=== PATIENT | female | born 1945 | race Caucasian/White ===

== ENCOUNTER 2023-03-02 08:02 | Day surgery (SDC) | payer MEDICARE, SELFPAY ==
--- NOTE | 2023-03-02 08:16 | SUR.PREOP ---
Patient provided home covid negative results to RN.
--- NOTE | 2023-03-02 08:16 | SUR.PREOP ---
The eye drops brought by the patient (Ketorolac and Prednisolone) are examined and I have determined they are labeled by the patient's pharmacy for this patient as prescribed by the surgeon. The bottles are intact, recently obtained and appear to be correct.
[2023-03-02] MEDS: TETRACAINE 0.5% OPHTH 1 DROP EYE-RIGHT ×2 (08:29→08:35)
[2023-03-02] MEDS: KETOROLAC OPHTH 0.5% 1 DROP EYE-RIGHT ×3 (08:34→08:55)
[2023-03-02 08:46] VITALS: BP 118/76; PULSE 80; RESP 16; TEMP 36.9; O2SAT 94
[2023-03-02 08:48] VITALS: BMI 24.0
[2023-03-02] MEDS: SODIUM CHLORIDE 0.9 % (FLUSH) 10 ML SYRINGE IVF (08:48)
--- NOTE | 2023-03-02 09:26 | W.ANESCHARGE ---
Anesthesia Charges Start Date/Time Anesthesia Start Date: 03/02/23 Anesthesia Start Time: 09:34 Stop Date/Time Anesthesia Stop Date: 03/02/23 Anesthesia Stop Time: 10:18 Summary Extremes of Age - Over 70 or under 1: MDA
[2023-03-02] MEDS: TETRACAINE 0.5% OPHTH 2 DROP EYE-RIGHT (09:37)
[2023-03-02] MEDS: BALANCED SALT IRRIG SOLN 15 ML EYE-RIGHT (09:46)
--- NOTE | 2023-03-02 09:47 | P.ANES_ITS ---
Anesthesia Charges Start Date/Time Anesthesia Start Date: 03/02/23 Anesthesia Start Time: 09:34 Stop Date/Time Anesthesia Stop Date: 03/02/23 Anesthesia Stop Time: 10:18 Summary Extremes of Age - Over 70 or under 1: [employer]
[2023-03-02] MEDS: TRYPAN BLUE 0.5 ML SYRINGE EYE-RIGHT (09:50)
[2023-03-02 10:22] VITALS: BP 97/67; PULSE 73; RESP 16; TEMP 36.6; O2SAT 96
--- NOTE | 2023-03-02 11:53 | W.PM.OPTPROC ---
Procedure Note Date of procedure: 03/02/23 Will [facility] bill your pro fee for this procedure?: Yes Procedure Description: SURGEON: Elvia Maurice MD PREOPERATIVE DIAGNOSIS: Mature cataract, right eye. POSTOPERATIVE DIAGNOSIS: Mature cataract, right eye. NAME OF OPERATION: Phacoemulsification of cataract with posterior chamber intraocular lens implantation in the right eye with trypan blue. ANESTHESIA: Topical. ESTIMATED BLOOD LOSS: Less than 2 cc. COMPLICATIONS: None. PATHOLOGY SPECIMEN: None. INDICATIONS: See consult note for details. The risks, benefits and alternatives of the procedure were explained to the patient, who elected to proceed and signed informed consent to do so. PROCEDURE: The patient was brought to the pre-holding area where the right eye was identified as the operative eye. I placed my initials above this eye. The patient received eye drops consisting of 0.5% tetracaine, 1% tropicamide, 10% phenylephrine, and 0.5% ketorolac. The patient was then brought to the operating room where the left eye was again identified as the operative eye. The eye was prepped with Betadine and draped in the usual sterile ophthalmic fashion. A #15 super-sharp blade was used to create a paracentesis site. 1% non-preserved intracameral lidocaine was injected into the anterior chamber. An air bubble was injected into the anterior chamber. Trypan blue was injected posterior to the air bubble in order to stain the anterior capsule. Balanced salt solution was used to irrigate the anterior chamber. Endocoat was injected into the anterior chamber. A 2.4 mm keratome was used to create a three-plane self-sealing incision 1 mm anterior to the temporal limbus. A cystotome was used to create an anterior capsular leaflet. The Utrata forceps were used to extend this to form a continuous curvilinear capsulorrhexis. Hydrodissection was performed. The cataract was removed with phacoemulsification using the [id number] technique. The irrigation and aspiration tip was used to remove the remaining cortex. Healon was injected into the capsular bag. An BELLA ZCB00 intraocular lens of 10.5 diopters was injected into the capsular bag. The irrigation and aspiration tip was used to remove the remaining viscoelastic. Balanced salt solution on a cannula was used to hydrate the wound, and the wound was found to be watertight. The pupil was noted to be round. DISPOSITION: The patient was taken to the recovery room and discharged to home in stable condition. The patient was instructed to call me or go to the emergency department with any sudden change, including dramatic loss of vision, severe pain in the eye or eyebrow region, nausea, or vomiting. The patient will follow up in the clinic tomorrow morning.
--- NOTE | 2023-03-02 11:53 | W.PM.OPTPROC ---
Procedure Note Date of procedure: 03/02/23 Will [facility] bill your pro fee for this procedure?: Yes Procedure Description: SURGEON: Elvia Maurice MD PREOPERATIVE DIAGNOSIS: Mature cataract, right eye. POSTOPERATIVE DIAGNOSIS: Mature cataract, right eye. NAME OF OPERATION: Phacoemulsification of cataract with posterior chamber intraocular lens implantation in the right eye. ANESTHESIA: Topical. ESTIMATED BLOOD LOSS: Less than 2 cc. COMPLICATIONS: None. PATHOLOGY SPECIMEN: None. INDICATIONS: See consult note for details. The risks, benefits and alternatives of the procedure were explained to the patient, who elected to proceed and signed informed consent to do so. PROCEDURE: The patient was brought to the pre-holding area where the right eye was identified as the operative eye. I placed my initials above this eye. The patient received eye drops consisting of 0.5% tetracaine, 1% tropicamide, 10% phenylephrine, and 0.5% ketorolac. The patient was then brought to the operating room where the right eye was again identified as the operative eye. The eye was prepped with Betadine and draped in the usual sterile ophthalmic fashion. A #15 super-sharp blade was used to create a paracentesis site. 1% non-preserved intracameral lidocaine was injected into the anterior chamber. Endocoat was injected into the anterior chamber. A 2.4 mm keratome was used to create a three-plane self-sealing incision 1 mm anterior to the temporal limbus. A cystotome was used to create an anterior capsular leaflet. The Utrata forceps were used to extend this to form a continuous curvilinear capsulorrhexis. Hydrodissection was performed. The cataract was removed with phacoemulsification using the [id number] technique. The irrigation and aspiration tip was used to remove the remaining cortex. Healon was injected into the capsular bag. An BELLA ZCB00 intraocular lens of 19.0 diopters was injected into the capsular bag. The irrigation and aspiration tip was used to remove the remaining viscoelastic. Balanced salt solution on a cannula was used to hydrate the wound, and the wound was found to be watertight. The pupil was noted to be round. DISPOSITION: The patient was taken to the recovery room and discharged to home in stable condition. The patient was instructed to call me or go to the emergency department with any sudden change, including dramatic loss of vision, severe pain in the eye or eyebrow region, nausea, or vomiting. The patient will follow up in the clinic tomorrow morning.
== END 2023-03-02 10:37 | disposition home or self-care (01) ==
LOC: OR 08:06
PROVIDERS: PCP Family Medicine; Visit Provider Ophthalmology
PROC: (CPT 66984; principal; 2023-03-02 08:15)
DX: H25.89 Other age-related cataract (principal)
CPT/HCPCS: 66984; 00142; 99100; A9270; J2250; J3010; V2632

== ENCOUNTER 2023-03-16 08:07 | Day surgery (SDC) | payer MEDICARE, SELFPAY ==
[2023-03-16] MEDS: TETRACAINE 0.5% OPHTH 1 DROP EYE-LEFT ×2 (08:20→08:25)
[2023-03-16] MEDS: KETOROLAC OPHTH 0.5% 1 DROP EYE-LEFT ×3 (08:20→08:30)
[2023-03-16 08:23] VITALS: BP 131/67; PULSE 85; RESP 16; TEMP 36.3; O2SAT 95; BMI 24.0
--- NOTE | 2023-03-16 08:26 | SUR.PREOP ---
The eye drops brought by the patient (Ketorolac, Oflaxain, and Prednisolone) are examined and I have determined they are labeled by the patient's pharmacy for this patient as prescribed by the surgeon. The bottles are intact, recently obtained and appear to be correct.
[2023-03-16] MEDS: SODIUM CHLORIDE 0.9 % (FLUSH) 10 ML SYRINGE IVF (08:40)
--- NOTE | 2023-03-16 08:57 | W.ANESCHARGE ---
Anesthesia Charges Start Date/Time Anesthesia Start Date: 03/16/23 Anesthesia Start Time: 09:14 Stop Date/Time Anesthesia Stop Date: 03/16/23 Anesthesia Stop Time: 09:46 Summary Extremes of Age - Over 70 or under 1: MDA
[2023-03-16] MEDS: TETRACAINE 0.5% OPHTH 2 DROP EYE-LEFT (09:16)
[2023-03-16] MEDS: BALANCED SALT IRRIG SOLN 15 ML EYE-LEFT (09:22)
[2023-03-16 09:43] VITALS: BP 103/65; PULSE 72; RESP 16; TEMP 36.6; O2SAT 96
--- NOTE | 2023-03-16 09:46 | P.OPTPRC_ITS ---
Procedure Note Date of procedure: 03/16/23 Will [facility] bill your pro fee for this procedure?: Yes Procedure Description: SURGEON: Elvia Maurice MD PREOPERATIVE DIAGNOSIS: Nuclear sclerotic cataract, left eye. POSTOPERATIVE DIAGNOSIS: Nuclear sclerotic cataract, left eye. NAME OF OPERATION: Phacoemulsification of cataract with posterior chamber intraocular lens implantation in the left eye. ANESTHESIA: Topical. ESTIMATED BLOOD LOSS: Less than 2 cc. COMPLICATIONS: None. PATHOLOGY SPECIMEN: None. INDICATIONS: See consult note for details. The risks, benefits and alternatives of the procedure were explained to the patient, who elected to proceed and sign ed informed consent to do so. PROCEDURE: The patient was brought to the pre-holding area where the left eye was identified as the operative eye. I placed my initials above this eye. The patient received eye drops consisting of 0.5% tetracaine, 1% tropicamide, 10% phenylephrine, and 0.5% ketorolac. The patient was then brought to the operating room where the left eye was again identified as the operative eye. The eye was prepped with Betadine and draped in the usual sterile ophthalmic fashion. A #15 super-sharp blade was used to create a paracentesis site. 1% non-preserved intracameral lidocaine was injected into the anterior chamber. Endocoat was injected into the anterior chamber. A 2.4 mm keratome was used to create a three-plane self-sealing incision 1 mm anterior to the temporal limbus. A cystotome was used to create an anterior capsular leaflet. The Utrata forceps were used to extend this to form a continuous curvilinear capsulorrhexis. Hydrodissection was performed. The cataract was removed with phacoemulsification using the [id number] technique. The irrigation and aspiration tip was used to remove the remaining cortex. Healon was injected into the capsular bag. An BELLA ZCB00 intraocular lens of 11.0 diopters was injected into the capsular bag. The irrigation and aspiration tip was used to remove the remaining viscoelastic. Balanced salt solution on a cannula was used to hydrate the wound, and the wound was found to be watertight. The pupil was noted to be round. DISPOSITION: The patient was taken to the recovery room and discharged to home in stable condition. The patient was instructed to call me or go to the emergency department with any sudden change, including dramatic loss of vision, severe pain in the eye or eyebrow region, nausea, or vomiting. The patient will follow up in the clinic tomorrow morning.
--- NOTE | 2023-03-16 09:46 | W.ANESCHARGE ---
Anesthesia Charges Start Date/Time Anesthesia Start Date: 03/16/23 Anesthesia Start Time: 09:14 Stop Date/Time Anesthesia Stop Date: 03/16/23 Anesthesia Stop Time: 09:46 Summary Extremes of Age - Over 70 or under 1: [employer]ER
== END 2023-03-16 10:13 | disposition home or self-care (01) ==
PROVIDERS: PCP Family Medicine; Visit Provider Ophthalmology
PROC: (CPT 66984; principal; 2023-03-16 08:15)
DX: H25.12 Age-related nuclear cataract, left eye (principal)
CPT/HCPCS: 66984; 00142; 99100; A9270; J2250; J3010; V2632

== ENCOUNTER 2023-11-21 15:52 | Outpatient (CLI) | payer MEDICARE, SELFPAY ==
--- OUTSIDE RECORDS SUMMARY | 2023-11-25 10:33 | XMS_ITS | Clinical Summary ---
Author Name Unknown Organization [facility] Address [place], [place] [address] Care Team Providers Care Correctional Sergeant Name Role Phone Debbie Camarillo MD Primary Care Provider [phone] Allergies No known active allergies Medications Medication Sig Dispensed Refills Start Date End Date Status lisinopriL (PRINIVIL; ZESTRIL) 20 mg tabletIndications: HTN (hypertension) Take 1 Tablet (20 mg) by mouth once daily. 100 Tablet 3 06/13/20 23 023 Discontinued(*I P Discontinued) metFORMIN (GLUCOPHAGE) 850 mg tabletIndications: Prediabetes Take 1 Tablet (850 mg) by mouth two times daily with meals. 200 Tablet 3 06/13/20 23 023 Discontinued(*I P Discontinued) rosuvastatin (CRESTOR) 20 mg tabletIndications: Hyperlipidemia, unspecified hyperlipidemia type Take 1 Tablet (20 mg) by mouth at bedtime. 100 Tablet 3 06/13/20 23 023 Discontinued calcitonin salmon, 200 units per actuation, nasal (MIACALCIN, FORTICAL) 200 unit/actuation nasal sprayIndications:N ontraumatic compression fracture of T11 vertebra, initial encounter (HC),Compression fracture of L3 vertebra, initial encounter (HC) INHALE 1 SPRAY INTO AFFECTED NOSTRIL(S) ONCE DAILY. ALTERNATING NOSTRILS DAILY. 11.1 mL 3 10/17/20 23 024 Discontinued(Ph armacist change per medication history (E-cancel not sent)) oxyCODONE (ROXICODONE) 5 mg immediate release tabletIndications: Nontraumatic compression fracture of T11 vertebra, initial encounter (HC),Compression fracture of L3 vertebra, initial encounter (HC) Take 1 Tablet (5 mg) by mouth every 6 hours if needed for Pain. 30 Tablet 0 10/20/20 23 023 Discontinued acetaminophen (TYLENOL EXTRA STRGTH) 500 mg tablet Take 1,000 mg by mouth three times daily. Max acetaminophen dose: 4000mg in 24 hrs. 0 Suspended aspirin (ECOTRIN) 81 mg enteric coated tablet Take 81 mg by mouth once daily with evening meal. 0 Suspended guar gum (CHEWABLE FIBER ORAL) Take 1 Tablet by mouth once daily. 0 Suspended oxyCODONE (ROXICODONE) 5 mg immediate release tabletIndications: Nontraumatic compression fracture of T11 vertebra, initial encounter (HC),Compression fracture of L3 vertebra, initial encounter (HC) Take 1 Tablet (5 mg) by mouth every 6 hours if needed (severe pain). 10 Tablet 0 10/28/20 23 Suspended Additional Information acetylcysteine (MUCOMYST) 10 % (100 mg/ml) neb solutionIndication s:Abscess of left lung with pneumonia, unspecified part of lung (HC) Inhale 2 mL by mouth 4 times daily. 0 10/28/20 23 Suspended Additional Information albuterol (PROVENTIL) 0.083 % neb solutionIndication s:Abscess of left lung with pneumonia, unspecified part of lung (HC) Inhale 3 mL (2.5 mg) via a nebulizer 4 times daily. 0 10/28/20 23 Suspended Additional Information amoxicillin-clavul anate 875-125 mg tablet (AUGMENTIN)Indicat ions:Abscess of left lung with pneumonia, unspecified part of lung (HC) Take 1 Tablet by mouth two times daily with meals. 0 10/28/20 23 024 Suspended Additional Information doxycycline (VIBRAMYCIN) 100 mg capsuleIndications :Community acquired pneumonia, unspecified laterality,Abscess of left lung with pneumonia, unspecified part of lung (HC) Take 1 Capsule (100 mg) by mouth two times daily. 0 10/28/20 23 024 Discontinued(Ph armacist change per medication history (E-cancel not sent)) rosuvastatin (CRESTOR) 20 mg tabletIndications: Hyperlipidemia, unspecified hyperlipidemia type Take 0.5 Tablets (10 mg) by mouth at bedtime. 0 10/28/20 23 Suspended Additional Information lactobacillus rhamnosus, GG, (Culturelle) 10 billion cell capsule Take 1 Capsule by mouth once daily. 0 Suspended calcium polycarbophiL (Fiber) 625 mg tablet Take 625 mg by mouth once daily. 0 024 Discontinued(*P atient states no longer taking) furosemide (Lasix) 40 mg tablet Take 40 mg by mouth every morning. 0 Suspended melatonin 3 mg tablet Take 1 mg by mouth at bedtime. 0 Suspended mirtazapine (REMERON) 7.5 mg as half tablet Take 7.5 mg by mouth at bedtime. 0 Suspended LORazepam (ATIVAN) 0.5 mg tab Take 0.5 mg by mouth every 4 hours if needed for Anxiety. 0 Suspended Active Problems Problem Noted Date Diagnosed Date Adenocarcinoma of left lung 11/25/2023 Spinal cord lesion 11/22/2023 Acute hypoxic respiratory failure 11/22/2023 Hypokalemia 11/22/2023 Leukocytosis 11/22/2023 Thrombocytosis 11/22/2023 Mass of left lung 11/22/2023 Abscess of left lung with pneumonia 10/24/2023 Pre-diabetes 10/24/2023 Non-traumatic compression fr acture of T11 thoracic vertebra, with routine healing, subsequent encounter 10/24/2023 Compression fracture of L3 l umbar vertebra, with routine healing, subsequent encounter 10/24/2023 Sepsis 10/24/2023 Hypertension, essential 06/10/2022 Increased glucose level 06/10/2022 Mixed hyperlipidemia 03/16/1999 Resolved Problems Problem Noted Date Diagnosed Date Resolved Date Recurrent major depressive d isorder, in partial remission 04/14/1998 06/10/2022 Encounters Date Type Department Care Team Description 11/21/2023 4:58 PM UNDERGRADUATE ADVISOR - Present Hospital Encounter [facility] [address] [place] [address] Leticia Rhodes PA Dodd, Kendra Danielle, MD [facility], MD Ramón Martinez, MD Caitlyn Hinojosa, Arun Patel MD Hypoxemia (Primary Dx); Hypokalemia; Shortness of breath; Pneumonia of left lung due to infectious organism, unspecified part of lung; Pleural effusion 11/21/2023 Travel 11/21/2023 Lab Requisition [facility] [phone] Lisa Kilgore NP 11/17/2023 Orders Only [facility] Scanner 1 scan: (1-Ord) ABNER, MULTIPLE TEST RESULTS, 11/17/2023 2023 Refill [facility] [address] [place] [address] Debbie Camarillo MD Refill Request (Metformin) 10/31/2023 Lab Requisition [facility] [phone] Isaac Cook MD 10/24/2023 11:30 AM UNDERGRADUATE ADVISOR - 10/28/2023 10:30 AM UNDERGRADUATE ADVISOR Hospital Encounter [facility] [address] [place] [address] Elvia Finley, PRECISION OPT[employer] TECHNICIAN Avni, Paco Moran, Tess Waldron MD Nguyen, Catrachita Angel, ERICA Razo, Carlito Adams, ERICA Community acquired pneumonia, unspecified laterality (Primary Dx); Sepsis with acute organ dysfunction without septic shock, due to unspecified organism, unspecified organ dysfunction type (HC); Skin candidiasis; Pressure injury, stage 2, unspecified location (HC); Hallucinations; Compression fracture of body of thoracic vertebra (HC); Compression fracture of L2 lumbar vertebra, sequela; Nontraumatic compression fracture of T11 vertebra, initial encounter (HC); Compression fracture of L3 vertebra, initial encounter (HC); Abscess of left lung with pneumonia, unspecified part of lung (HC); Prediabetes; Hyperlipidemia, unspecified hyperlipidemia type Discharge Disposition: [facility] Facility 10/24/2023 Travel 10/24/2023 Nurse Triage [facility] [address] [place] [address] Debbie Camarillo MD Back Pain; Hallucinations 10/16/2023 Refill [facility] [address] [place] [address] Danica Palomo PA Refill Request (Calcitonin [place] (200 Units Per Actuation) Nasal) 09/23/2023 2:25 PM UNDERGRADUATE ADVISOR Office Visit [facility] [address] [place] [address] Rowan Wilson PA Back Pain (follow up, no change in symptoms) 09/23/2023 Travel 09/16/2023 3:00 PM CDT Ancillary Procedure [facility] [address] [place] [address] 09/16/2023 2:30 PM CDT Office Visit [facility] [address] [facility] [place] [address] Danica Palomo PA Back Pain (lower back- sharp stabbing pain there all the time, about a month, takes the breath away/No injury or falls) 09/16/2023 Travel from Last 3 Months Immunizations Name Administration Dates Next Due COVID-19 vaccine ([employer] NTech 30mcg/0.3mL) 12YO+ BIVALENT PF, MDV 02/23/2023 Hepatitis B (Adult) 03/29/2000,03/27/1999 Influenza, High-dose Inactivated 019,08/14/2018,08/03/2017,2015 Influenza, High-dose Quadriv alent Inactivated 08/25/2022,08/18/2021,08/04/2020 Influenza, IIV3 (Age 6-35 mos) 08/11/2015,2009,07/28/2009 Influenza, IIV3 (Age >=3 years) 06/20/20 14,07/21/2012,07/22/2011,2007,10/11/2007,10/04/2005 Influenza, IIV4 (Age 6-35 Mos) 07/26/2013 Pneumococcal Poly,23-Valent (Pneumovax) 08/11/2016,10/04/2005 Pneumococcal conj 13-Valent (Prevnar 13) 08/11/2015 Tdap 03/14/2018,07/08/2008 Social History Tobacco Use Types Packs/Day Years Used Date Smoking Tobacco: Never Smokeless Tobacco: Never Tobacco Cessation:Counseling Given: Yes Alcohol Use Standard Drinks/Week Comments Yes 0 (1 standard drink = 0.6 oz pur e alcohol) oce a month PHQ-2 Answer Date Recorded PHQ-2 TOTAL SCORE 0 06/13/2023 Social Connections Answer Date Recorded Frequency of Communication with Friends and Fami ly 0 10/24/2023 Financial Resource Strain Answer Date R ecorded Difficulty of Paying Living Expenses 3 10/24/2023 Difficulty of Paying Living Expenses Not on file 10/24/2023 Food Insecurity Answer Date Recorded Worried About Running Out of Food in the Last Ye ar 1 10/24/2023 Transportation Needs Answer Date Record ed Lack of Transportation (Medical) 1 10/24/2023 Housing Stability Answer Date Recorded Unable to Pay for Housing in the Last Year 1 10/24/2023 Sex and Gender Information Value Date Recorded Sex Assigned at Not on file Gender Identity Not on file Sexual Orientation Not on file Obstetrics History Last Filed Vital Signs Vital Sign Reading Time Taken Comments Blood Pressure 110/62 11/25/2023 8:00 AM UNDERGRADUATE ADVISOR Pulse 92 11/25/2023 8:00 AM UNDERGRADUATE ADVISOR Temperature 36.5 ??C (97.7 ??F) 11/25/2023 8:00 AM CS T Respiratory Rate 16 11/25/2023 8:00 AM UNDERGRADUATE ADVISOR Oxygen Saturation 96% 11/25/2023 8:37 AM UNDERGRADUATE ADVISOR Inhaled Oxygen Concentration - - Weight 49.9 kg (109 lb 14.4 oz) 11/22/2023 6:00 AM UNDERGRADUATE ADVISOR Height 152.4 cm (5') 11/21/2023 5:13 PM UNDERGRADUATE ADVISOR Body Mass Index 21.46 11/21/2023 5:13 PM UNDERGRADUATE ADVISOR Plan of Treatment Upcoming Encounters Date Type Department Care Team (Late st Contact Info) Description 12/19/2023 10:45 AM UNDERGRADUATE ADVISOR Office Visit [facility] [address] [facility] [address] [place] [address] Robson Moreno MD [address] [facility] [address] [place], [place] [id number] Health Maintenance Due Date Last Done Comments Zoster (shingles) series for age 50+ (1 of 2) 1966 COVID-19 vaccine series (2022-24 season) 2023 02/23/2023, 03/17/2022, 07/30/2021, Additional history exists Influenza for age 65+ 07/15/2023 08/25/2022 , 08/18/2021, 08/04/2020, Additional history exists Medicare Wellness for age 65+ 06/12/2024 06/13/2023, 06/10/2022 BMI (ht and wt on same day) for age 18+ 06/13/2024 06/13/2023, 02/23/2023, 06/10/2022 Depression screening for age 12+ 06/13/2024 06/13/2023, 06/11/2022, 06/10/2022 Tetanus booster 03/14/2028 03/14/2018, 07/08/2008 Pneumococcal series for age 65+ Completed 08/11/2016, 08/11/2015, 10/04/2005 Tdap Completed 03/14/2018, 07/08/2008 Hepatitis C screening for ag e 18-79 Completed 06/10/2022 DEXA/DXA scan for age 65+ Completed 06/14/2022 Procedures The patient is currently admitted. The information in this section might not be complete until the patient is discharged. Procedure Name Priority Date/Time Associated Diagnosis Comments MAGNESIUM Early AM 11/25/2023 6:15 AM UNDERGRADUATE ADVISOR POTASSIUM Early AM 11/25/2023 6:15 AM UNDERGRADUATE ADVISOR POTASSIUM Early AM 11/24/2023 7:45 AM UNDERGRADUATE ADVISOR MAGNESIUM Timed 11/24/2023 7:45 AM UNDERGRADUATE ADVISOR CBC W PLT NO DIFF Early AM 11/24/2023 7:4 5 AM UNDERGRADUATE ADVISOR XR CHEST 1 VIEW PORTABLE Routine 11/23/2023 4:36 PM UNDERGRADUATE ADVISOR PATH FNA CYTOLOGY ASP CYTOLOGY Today 11/23/2023 2:[address] BIOPSY LUNG LEFT Routine 11/23/2023 2 :36 PM UNDERGRADUATE ADVISOR COMPLETE PULMONARY FUNCTION TEST WITH BRONCHODILATOR Routine 11/23/2023 2:12 PM UNDERGRADUATE ADVISOR MAGNESIUM JOSHUA 11/23/2023 5:53 AM UNDERGRADUATE ADVISOR PROTIME-INR Timed 11/23/2023 5:53 AM UNDERGRADUATE ADVISOR POTASSIUM Timed 11/23/2023 5:53 AM UNDERGRADUATE ADVISOR MICHAEL PREP, OTHER SOURCE Add On 6:09 PM UNDERGRADUATE ADVISOR XR CHEST 1 VIEW PA OR AP Routine 11/22/2023 2:41 PM UNDERGRADUATE ADVISOR US THORACENTESIS LEFT Routine 11/22/2023 2:33 PM UNDERGRADUATE ADVISOR PATH NON LIFE CLAIMS EXAMINER CYTOLOGY Today 11/22/2023 2:29 PM UNDERGRADUATE ADVISOR CWS PATH REVIEW BODY FLUID Timed 11/22/2023 2:29 PM UNDERGRADUATE ADVISOR ANAEROBIC CULTURE Today 11/22/2023 2:2 9 PM UNDERGRADUATE ADVISOR AFB CULTURE, STAIN Today 11/22/2023 2: 29 PM UNDERGRADUATE ADVISOR LD,BODY FLUID Today 11/22/2023 2:29 PM UNDERGRADUATE ADVISOR PH,BODY FLUID Today 11/22/2023 2:29 PM UNDERGRADUATE ADVISOR PROTEIN,BODY FLUID Today 11/22/2023 2: 29 PM UNDERGRADUATE ADVISOR BODY FLUID CELL COUNT/DIF Routine 11/22/2023 2:29 PM UNDERGRADUATE ADVISOR BODY FLUID CULTURE,STAIN (AEROBIC) Today 11/22/2023 2:29 PM UNDERGRADUATE ADVISOR SCAN CORRESP-LABORATORY RESULTS 11/22/2023 9:46 AM UNDERGRADUATE ADVISOR PHOSPHORUS JOSHUA 11/22/2023 4:50 AM UNDERGRADUATE ADVISOR MAGNESIUM JOSHUA 11/22/2023 4:50 AM UNDERGRADUATE ADVISOR BASIC METABOLIC PANEL Early AM 11/22/2023 4:50 AM UNDERGRADUATE ADVISOR CBC W PLT NO DIFF Early AM 11/22/2023 4:5 0 AM UNDERGRADUATE ADVISOR LACTATE SCREEN VENOUS ISTAT W MOSER STAT 11/21/2023 9:39 PM UNDERGRADUATE ADVISOR EXTRA TUBE MOSER ON ICE STAT 9:25 PM UNDERGRADUATE ADVISOR PROCALCITONIN JOSHUA 11/21/2023 9:25 PM UNDERGRADUATE ADVISOR BLOOD CULTURE STAT 11/21/2023 9:25 PM UNDERGRADUATE ADVISOR ISTAT LACTATE SCREEN VENOUS STAT 11/21/2023 9:25 PM UNDERGRADUATE ADVISOR BLOOD CULTURE STAT 11/21/2023 9:[address] CHEST PE STUDY STAT 11/21/2023 8:3 7 PM UNDERGRADUATE ADVISOR TROPONIN T (HS) ONE TIME Timed 11/21/2023 8:08 PM UNDERGRADUATE ADVISOR EKG 12 LEAD STAT 11/21/2023 6:14 PM UNDERGRADUATE ADVISOR CWS PATH REVIEW HEMATOLOGY STAT 11/21/2023 6:08 PM UNDERGRADUATE ADVISOR RED CELL MORPHOLOGY STAT 11/21/2023 6 :08 PM UNDERGRADUATE ADVISOR PLATELET ESTIMATE STAT 11/21/2023 6:0 8 PM UNDERGRADUATE ADVISOR MANUAL DIFFERENTIAL STAT 11/21/2023 6 :08 PM UNDERGRADUATE ADVISOR PRO-BNP JOSHUA 11/21/2023 6:08 PM UNDERGRADUATE ADVISOR TROPONIN T (HS) ACUTE W/2HR REFLEX JOSHUA 11/21/2023 6:08 PM UNDERGRADUATE ADVISOR CBC WITH AUTO DIFFERENTIAL STAT 11/21/2023 6:08 PM UNDERGRADUATE ADVISOR BASIC METABOLIC PANEL STAT 11/21/2023 6:08 PM UNDERGRADUATE ADVISOR CBC WITH AUTO DIFFERENTIAL STAT 11/21/2023 6:08 PM UNDERGRADUATE ADVISOR SCAN-LABORATORY REPORT 4 12:00 AM UNDERGRADUATE ADVISOR CWS PATH REVIEW HEMATOLOGY Routine 2023 7:05 AM UNDERGRADUATE ADVISOR Pneumonia, unspecified organism RED CELL MORPHOLOGY Routine 2023 7 :05 AM UNDERGRADUATE ADVISOR Pneumonia, unspecified organism PLATELET ESTIMATE Routine 2023 7:0 5 AM UNDERGRADUATE ADVISOR Pneumonia, unspecified organism MANUAL DIFFERENTIAL Routine 2023 7 :05 AM UNDERGRADUATE ADVISOR Pneumonia, unspecified organism CBC WITH AUTO DIFFERENTIAL Routine 2023 7:05 AM UNDERGRADUATE ADVISOR Pneumonia, unspecified organism BASIC METABOLIC PANEL Routine 2023 7:05 AM UNDERGRADUATE ADVISOR Pneumonia, unspecified organism C-REACTIVE PROTEIN Routine 2023 7: 05 AM UNDERGRADUATE ADVISOR Pneumonia, unspecified organism CBC WITH AUTO DIFFERENTIAL Routine 2023 7:05 AM UNDERGRADUATE ADVISOR Pneumonia, unspecified organism MRSA/SA PCR Today 10/27/2023 3:27 PM UNDERGRADUATE ADVISOR COCCIDIOIDES ANTIBODY IGG & IGM Today 10/27/2023 1:23 PM UNDERGRADUATE ADVISOR BLASTOMYCES ABS QN DID Today 1:23 PM UNDERGRADUATE ADVISOR C-REACTIVE PROTEIN JOSHUA 10/27/2023 6: 06 AM UNDERGRADUATE ADVISOR MAGNESIUM Early AM 10/27/2023 6:06 AM UNDERGRADUATE ADVISOR POTASSIUM Early AM 10/27/2023 6:06 AM UNDERGRADUATE ADVISOR CREATININE Early AM 10/27/2023 6:06 AM UNDERGRADUATE ADVISOR PROCALCITONIN Early AM 10/27/2023 6:06 AM UNDERGRADUATE ADVISOR WHITE BLOOD COUNT Early AM 10/27/2023 6:0 6 AM UNDERGRADUATE ADVISOR MAGNESIUM Timed 10/27/2023 12:35 AM UNDERGRADUATE ADVISOR POTASSIUM Timed 10/26/2023 7:03 PM UNDERGRADUATE ADVISOR C-REACTIVE PROTEIN Early AM 10/26/2023 5: 48 AM UNDERGRADUATE ADVISOR WHITE BLOOD COUNT Early AM 10/26/2023 5:4 8 AM UNDERGRADUATE ADVISOR CREATININE Early AM 10/26/2023 5:48 AM UNDERGRADUATE ADVISOR CHLORIDE Early AM 10/26/2023 5:48 AM UNDERGRADUATE ADVISOR SODIUM Early AM 10/26/2023 5:48 AM UNDERGRADUATE ADVISOR BUN Early AM 10/26/2023 5:48 AM UNDERGRADUATE ADVISOR CO2,TOTAL Early AM 10/26/2023 5:48 AM UNDERGRADUATE ADVISOR MAGNESIUM Early AM 10/26/2023 5:48 AM UNDERGRADUATE ADVISOR POTASSIUM Early AM 10/26/2023 5:48 AM UNDERGRADUATE ADVISOR GLUCOSE METER Routine 10/25/2023 11:46 AM UNDERGRADUATE ADVISOR GLUCOSE METER Routine 10/25/2023 7:51 AM UNDERGRADUATE ADVISOR C-REACTIVE PROTEIN Early AM 10/25/2023 5: 53 AM UNDERGRADUATE ADVISOR CALCIUM Early AM 10/25/2023 5:53 AM UNDERGRADUATE ADVISOR CO2,TOTAL Early AM 10/25/2023 5:53 AM UNDERGRADUATE ADVISOR BUN Early AM 10/25/2023 5:53 AM UNDERGRADUATE ADVISOR HEMOGLOBIN Early AM 10/25/2023 5:53 AM UNDERGRADUATE ADVISOR WHITE BLOOD COUNT Early AM 10/25/2023 5:5 3 AM UNDERGRADUATE ADVISOR MAGNESIUM Early AM 10/25/2023 5:53 AM UNDERGRADUATE ADVISOR CREATININE Early AM 10/25/2023 5:53 AM UNDERGRADUATE ADVISOR POTASSIUM Early AM 10/25/2023 5:53 AM UNDERGRADUATE ADVISOR SODIUM Early AM 10/25/2023 5:53 AM UNDERGRADUATE ADVISOR GLUCOSE METER Routine 10/24/2023 9:14 PM UNDERGRADUATE ADVISOR GLUCOSE METER Routine 10/24/2023 5:04 PM UNDERGRADUATE ADVISOR URINALYSIS MICROSCOPIC STAT 3:47 PM UNDERGRADUATE ADVISOR LEGIONELLA AND PNEUMOCOCCAL URINE ANTIGEN STAT 10/24/2023 3:47 PM UNDERGRADUATE ADVISOR UA W/ SEDIMENT EXAM REFLEXED PER CRITERIA STAT 10/24/2023 3:47 PM UNDERGRADUATE ADVISOR PROCALCITONIN STAT 10/24/2023 1:[address] CHEST W STAT 10/24/2023 1:09 PM UNDERGRADUATE ADVISOR XR CHEST 1 VIEW PORTABLE STAT 10/24/2023 12:17 PM UNDERGRADUATE ADVISOR RED CELL MORPHOLOGY STAT 10/24/2023 1 1:57 AM UNDERGRADUATE ADVISOR PLATELET ESTIMATE STAT 10/24/2023 11: 57 AM UNDERGRADUATE ADVISOR MANUAL DIFFERENTIAL STAT 10/24/2023 1 1:57 AM UNDERGRADUATE ADVISOR CBC WITH AUTO DIFFERENTIAL STAT 10/24/2023 11:57 AM UNDERGRADUATE ADVISOR PRO-BNP STAT 10/24/2023 11:57 AM UNDERGRADUATE ADVISOR LACTATE VENOUS Today 10/24/2023 11:57 AM UNDERGRADUATE ADVISOR BLOOD CULTURE STAT 10/24/2023 11:57 AM UNDERGRADUATE ADVISOR BLOOD CULTURE STAT 10/24/2023 11:57 AM UNDERGRADUATE ADVISOR C-REACTIVE PROTEIN STAT 10/24/2023 11 :57 AM UNDERGRADUATE ADVISOR COMP METABOLIC PANEL STAT 10/24/2023 11:57 AM UNDERGRADUATE ADVISOR CBC WITH AUTO DIFFERENTIAL STAT 10/24/2023 11:57 AM UNDERGRADUATE ADVISOR XR SPINE THORACOLUMBAR JUNCTION MINIMUM OF 2 VIEWS Routine 09/16/2023 3:10 PM CDT Severe back pain from Last 3 Months Results * POTASSIUM (11/25/2023 6:15 AM UNDERGRADUATE ADVISOR) Only the most recent of7 resultswithin the time period is included. POTASSIUM 4.7 3.5 - 5.1 mmol/L 11/25/2023 7:43 AM UNDERGRADUATE ADVISOR [facility] Blood BLOOD SPECIMEN / Unknown Venipuncture / Unknown 11/25/2023 6:15 AM UNDERGRADUATE ADVISOR 11/25/2023 6:26 AM UNDERGRADUATE ADVISOR Arun Jorge Brady MD [facility] [address] [place] [address], * MAGNESIUM (11/25/2023 6:15 AM UNDERGRADUATE ADVISOR) Only the most recent of8 resultswithin the time period is included. MAGNESIUM 2.1 1.6 - 2.4 mg/dL 11/25/2023 7:43 AM UNDERGRADUATE ADVISOR [facility] Blood BLOOD SPECIMEN / Unknown Venipuncture / Unknown 11/25/2023 6:15 AM UNDERGRADUATE ADVISOR 11/25/2023 6:26 AM UNDERGRADUATE ADVISOR Arun Brady MD CHEMISTRY [facility] [address] [place] [address], * (ABNORMAL) CBC no diff AM (11/24/2023 7:45 AM UNDERGRADUATE ADVISOR) Only the most recent of2 resultswithin the time period is included. WHITE BLOOD COUNT 21.2(H) 4.5 - 11.0 thou/cu mm 11/24/2023 8:05 AM [facility] RED BLOOD COUNT 3.16(L) 4.00 - 5.20 mil/cu mm 11/24/2023 8:05 AM [facility] HEMOGLOBIN 9.4(L) 12.0 - 16.0 g/dL 11/24/2023 8:05 AM [facility] HEMATOCRIT 29.3(L) 33.0 - 51.0 % 11/24/2023 8:05 AM [facility] MCV 93 80 - 100 fL 11/24/2023 8:05 AM [facility] MCH 29.7 26.0 - 34.0 pg 11/24/2023 8:05 AM [facility] MCHC 32.1 32.0 - 36.0 g/dL 11/24/2023 8:05 AM [facility] RDW 21.3(H) 11.5 - 15.5 % 11/24/2023 8:05 AM [facility] PLATELET COUNT 560(H) 140 - 440 thou/cu mm 11/24/2023 8:05 AM [facility] MPV 9.5 6.5 - 11.0 fL 11/24/2023 8:05 AM [facility] NRBC 0.0 % 11/24/2023 8:05 AM [facility] ABS NRBC 0.0 thou /cu mm 11/24/2023 8:05 AM UNDERGRADUATE ADVISOR [facility] Blood BLOOD SPECIMEN / Unknown Venipuncture / Unknown 11/24/2023 7:45 AM UNDERGRADUATE ADVISOR 11/24/2023 7:58 AM UNDERGRADUATE ADVISOR Arun Jorge Brady MD HEMATOLOGY [facility] [address] [place] [address], [place] * XR CHEST 1 VIEW PORTABLE (11/23/2023 4:36 PM UNDERGRADUATE ADVISOR) Only the most recent of2 resultswithin the time period is included. Anatomical Region Laterality Modality HEART, THORAX, CHEST Digital Rad iography 11/23/2023 5:51 PM UNDERGRADUATE ADVISOR Impressions 11/23/2023 5:51 PM UNDERGRADUATE ADVISOR Trace left apical pneumothorax is unchanged from the biopsy. Dictated by Tripp Barnhart MD @ Nov 23 2023 ??5:51PM (Electronically Signed) ?? Narrative 11/23/2023 5:51 PM UNDERGRADUATE ADVISOR For Patients: ??As a result of the Cures Act, medical imaging exams and procedure reports are released immediately into your electronic medical record. ??You may view this report before your referring provider. ??If you have questions, please contact your health care provider. INDICATION: 2 hour post left lung biopsy. COMPARISON: Chest x-ray dated [address]-guided left lung biopsy dated 23 November 2023 at 1403 hours. FINDINGS: A single portable chest x-ray shows a normal cardiac silhouette. Atherosclerotic aorta. The lungs show airspace opacities in the mid and lower lungs. Trace left apical pneumothorax is and unchanged from the biopsy. Procedure Note Tripp Barnhart MD - 11/23/2023 For Patients: As a result of the Cures Act, medical imagingexams and procedure reports are released immediately into your electronicmedical record. You may view this report before your referring provider.If you have questions, please contact your health care provider. INDICATION: 2 hour post left lung biopsy. COMPARISON: Chest x-ray dated [address]-guided left lung biopsy dated 2023 at 1403 hours. FINDINGS: A single portable chest x-ray shows a normal cardiac silhouette.Atherosclerotic aorta. The lungs show airspace opacities in the mid and lower lungs. Trace leftapical pneumothorax is and unchanged from the biopsy. IMPRESSION: Trace left apical pneumothorax is unchanged from the biopsy. Dictated by Tripp Barnhart MD @ Nov 23 2023 5:51PM (Electronically Signed) Tripp Barnhart MD GENERAL IMAGING * PATH FNA CYTOLOGY ASP CYTOLOGY (11/23/2023 2:37 PM UNDERGRADUATE ADVISOR) Case Report Medical Cytology Report ? Case: [id number] ? Authorizing Provider: ??Tripp Barnhart MD ? Collected: ? 11/23/2023 1437 ? Ordering Location: ? [facility] ?Received: ?11/23/2023 1437 ? Hospital ? Pathologist: ? Perico Yu MD ? Specimen: ?Aspirate ? 4 4:53 PM [facility] Amendment 11/24/2023 - Amendmen t issued to report PD-L1 results. See final diagnosis section. 4 4:53 PM [facility] Final Diagnosis A) LUNG, LEFT LOWER LOBE, IMAGE GUIDED NEEDLE CORE BIOPSY WITH CYTOLOGIC TOUCH IMPRINTS: 1. Positive for adenocarcinoma with mucinous features 2. Ancillary testing: ?? a. PD-L1: ?- Tumor Proportion Score (TPS): 0% (No PD-L1 expression, TPS less than 1%) ?- Tumor Cell (TC): 0% (Negative, TC less than 1%) ?? b. NGS: Pending, ordered 11/24/2023 ?? 3. See comment 4 4:53 PM [facility] Amendment electronically signed by Beata Fernandez DO on 11/24/2023 at 4:53 PM Comment This TTF-1 positive, napsin-positive adenocarcinoma is consistent with a pulmonary primary. Note that the patient's pleural fluid specimen ([id number]) is also positive for adenocarcinoma. Case seen in consultation with Dr. Fernandez. LUNG ANCILLARY TESTING PROTOCOL Slides available for [facility] NGS testing: A1-1, A1-4 together (utilized for testing 11/24/2023); alternate slides are [id number] A1-2, N24-153 A1-1. Blocks available for [facility] NGS testing: A2; alternate block [id number] A2 Blocks available for tests using immunostains and/or FISH (requiring 100 cells): A2; alternate block N24-153 A2 Blocks available for send out (outside vendor) testing requiring 5 x 5 mm of tumor: N24-153 A2 This patient's sample meets [facility] Thoracic Oncology Program Committee criteria* for reflex testing or such testing has been requested by the ordering physician. Testing will be performed, and the results will be communicated in an amendment to this report. There is no need to call to order the above tests. If there is a need for ancillary tests other than these, please contact the [facility] ([phone]). *[facility] Program Committee reflex testing criteria: Stage IV pulmonary non-small cell carcinoma OR Tumor size >= 4 cm, or lymph node involvement, pulmonary non-small cell carcinoma, neoadjuvant setting OR Resected stage IB - IIIB pulmonary non-small cell carcinoma, adjuvant setting (if not previously performed) - [facility] Lung NGS panel (EGFR, ALK, ROS1, RET, MET, KRAS, BRAF, HRAS, NRAS, ERBB2, NTRK1/2/3) - [facility] SP263 - If RNA NGS fusion analysis fails, FISH for ALK and ROS1 fusion will be attempted 4 4:53 PM [facility] Clinical Information Ms. Mcneil is a 78 y.o. with abnormal chest imaging. A CT scan dated 11/21/2023 reports the following: IMPRESSION: 1. Persistent masslike infiltrate in the lower left lung. This could represent a neoplasm and/or pneumonia. 2. New bilateral pleural effusions with adjacent passive atelectasis in the lower lobes. 3. Lytic lesion in the T7 vertebral body highly suspicious for a metastatic lesion There is also a concurrent pleural fluid pathology case ([id number]). 4 4:53 PM [facility] Gross Description A) Received identified as Left lower lobe lung is a radiologic guided biopsy specimen. The core biopsy sampling measures 0.4 cm x 0.3 cm in aggregate. The specimen consists of: ? -4 Air dried slides ? -1 Formalin vial ? -0 RPMI vials The following were prepared from the specimen submitted: ? -4 Diff-Quik stained slides ? -1 H&E stained cell block slide The biopsy material is entirely submitted in 1 cassette. A2 Cell block material was removed from the patient and placed directly in formalin at 1425 on 11/23/23 and fixed in formalin at least 6 hours and no more than 72 hours. 4 4:53 PM [facility] Adequacy Assessment A) Loulou assessed adequacy from the air-dried smears at the time of the procedure with an impression of Adequate. 4 4:53 PM [facility] Microscopic Description Specimen adequacy: Adequate for interpretation. All slides were reviewed. The microscopic appearance substantiates the diagnosis. 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 Immunohistochemical stains are necessary and indicated to assess for possible primary sites. The following staining pattern is seen: TTF-1: Positive in the majority of neoplastic cells Napsin A: Positive in the majority of neoplastic cells This pattern supports this being a lung primary. 4 4:53 PM [facility] Additional Information Cytology is screened at [facility] - [address], [place] [address] and [facility] - [address], [place] [address] and [facility] - [address] [place] [address] Interpreted at [facility] - [address], [place] [address] TEST PERFORMED: PD-L1 (SP263) ANALYSIS BY IMMUNOHISTOCHEMISTRY (block A2) MATERIALS AND METHODS: ??- Adequate number of tumor cells are present on the re-cut H&E stain section. Minimum number of tumor cells required is 100 viable tumor cells ??- The positive and negative control tissue demonstrate appropriate staining TESTING INFORMATION FOR PD-L1 ANALYSIS: PD-L1 assayed by immunohistochemistry with microscopy, following tissue fixation in 10% neutral buffered formalin. Tissue sections are incubated with a PD-L1 rabbit monoclonal antibody (Macdoel PD-L1 SP263 assay), performed on the Macdoel BenchMark ULTRA instrument and visualized with OptiView DAB IHC Detection kit and OptiView Amplification Kit. PD-L1 22C3 Tumor Proportion Score (TPS) Interpretation Guidelines for non-small cell lung carcinoma: Tumor Proportion Score is determined by manual morphometry evaluating the number of tumor cells with partial or complete membranous staining (1+ intensity or more) divided by the total number of viable tumor cells. TPS scoring cut-offs: TPS less than 1% (No PD-L1 expression) TPS greater than or equal to 1% and less than 50% (PD-L1 Expression) TPS greater than or equal to 50% (High PD-L1 expression) Tumor Cell (TC) Interpretation Guidelines for non-small cell lung carcinoma: PD-L1 SP263 Tumor cell Score (TC) is determined by manual morphometry, evaluating the percentage of tumor cells (%TC) with any membrane staining above the background. TC scoring cut-offs: TC less than 1% (Negative) TC greater than or equal to 1% (Expression) This Macdoel SP263 immunohistochemical antibody assay is considered a laboratory developed test for patients with??non-small cell lung cancer who are being considered for treatment with atezolizumab. This Macdoel SP263 immunohistochemical antibody assay is considered a laboratory developed test for patients with non-small cell lung carcinoma who are being considered for treatment with pembrolizumab. This SP263 assay has been validated against the FDA approved PharmDX 22C3 assay. ?? The performance of this assay has not been validated on decalcified specimens. Results on decalcified specimens should be interpreted with caution, given the likelihood of a false negative result on decalcified specimens. References N Engl J Med 2020; 383:0013-7230 ?? 10.1056/CNVLag0225546 J Thorac Oncol 2018;13(3):367-76 https://doi.org/10.101 6/j.jtho.2017.11.112 J Thorac Oncol 2018;13(9):1302-11 ??https://doi.org/10.1 016/j.jtho.2018.05.013 J Thorac Oncol 2017;12(11):1654-63 ??https://doi.org /10.1016/j.jtho.2017.0 7.031 Am J Clin Oncol 2021;39(15)suppl:8500 ?? 10.1200/JCO.2021.39.15 _suppl.8500 Disclaimer Support for the interpretation of this case may have included the use of immunohistochemistry and/or in situ hybridization tests that were performed by [employer] and whose performance characteristics were evaluated by pathologists from [facility]. These tests have not been cleared or approved by the U.S. Food and Drug Administration. These tests are used for clinical purposes and should not be regarded as investigational or for research. This laboratory is certified under the Clinical Laboratory Improvement Amendments of 1988 (CLIA) as qualified to perform high complexity clinical laboratory testing. 4 4:53 PM UNDERGRADUATE ADVISOR [facility] Aspirate SPECIMEN OBTAINED BY ASPIRATION / Unknown 11/23/2023 2:37 PM UNDERGRADUATE ADVISOR 11/23/2023 2:37 PM UNDERGRADUATE ADVISOR Tripp Barnhart MD PATHOLOGY/CYTOLOGY [facility] [address] [place] [address], * CT BIOPSY LUNG LEFT (11/23/2023 2:36 PM UNDERGRADUATE ADVISOR) Anatomical Region Laterality Modality Lung Computed Tomogra phy, Other, Other Narrative 11/23/2023 3:03 PM UNDERGRADUATE ADVISOR RADIOLOGY POST PROCEDURE NOTE ?? 11/23/2023 Raysa Mcneil [id number] 1945 INFORMEDCONSENT: In my discussion, prior to the signing of the consent, I reviewed the procedure, benefits, risks, long-term effects, treatment options, possible use of pain or sedation medications, and how the procedure will meet the treatment goal with the patient and/or family. The patient was given ample time to ask questions. All questions were answered. ?? MODERATESEDATION: Under physician supervision, midazolam and fentanyl were administered intravenously for moderate sedation. Pulse oximetry, heart rate, and blood pressure were continuously monitored by a trained, dedicated nurse. The physician who performed the procedure provided 22 minutes of intra-service time with the patient. INDICATIONS: Left lower lung mass/consolidation. PROCEDURE PERFORMED: ??CT guided biopsy of a ??left lower lung mass/consolidation. PROCEDURE NARRATIVE (SMARTPHRASE DESCRIPTION): ??Under CT fluoroscopic guidance, a 19-gauge, introducer needle was advanced into the Left ??upper lobe nodule. Four 20-gauge, 2 cm core needle biopsy specimens were obtained. POST-PROCEDURE DIAGNOSIS: ??Status post CT guided biopsy of a ??left lower lung mass/consolidation. PATIENT POSITION: supine ANTISEPTIC PREPARATION and BARRIER TECHNIQUES USED: ??Skin was prepped and draped in the usual sterile fashion. IMAGING GUIDANCE FOR ACCESS / PROCEDURE: ??CT ? Permanently recorded images are archived in PACS. ACCESS LOCATION / SITE / TECHNIQUE: ??Left chest. EQUIPMENT UTILIZED: 20g core biopsy device. CLOSURE: ??none RADIATION DOSE: ?? total exam DLP: ??305 mGy-cm MEDICATIONS GIVEN: ??fentanyl 50 mcg IV. ??1% Lidocaine was used for local anesthesia. SPECIMEN(S): 20g core biopsy x 4. COMPLICATIONS: Tiny post biopsy pneumothorax. DRAINS: ??None ?? ESTIMATED BLOOD LOSS: ??Less than 10 cc. PHYSICIAN(S) AND ASSISTANTS (if any): ??Tripp Barnhart MD Additional Comments: Please call with questions. Tripp Barnhart MD [place] Protocol A. Pre-procedure verification complete yes 1-relevant information / documentation available, reviewed and properly matched to the patient; 2-consent accurate and complete, 3-equipment and supplies available B. Site marking complete Yes Site marked if not in continuous attendance with patient C. TIME OUT completed yes Time Out was conducted just prior to starting procedure to verify the eight required elements: 1-patient identity, 2-consent accurate and complete, 3-position, 4-correct side/site marked (if applicable), 5-procedure, 6-relevant images / results properly labeled and displayed (if applicable), 7-antibiotics / irrigation fluids (if applicable), 8-safety precautions. Please note that all CT scans at this facility use dose modulation, iterative reconstruction, and/or weight-based dosing when appropriate to reduce radiation dose to as low as reasonably achievable. Arun Jorge Brady MD CT * COMPLETE PULMONARY FUNCTION TEST WITH BRONCHODILATOR (11/23/2023 2:12 PM UNDERGRADUATE ADVISOR) Narrative Procedure Note Ankit Najera MD - 11/23/2023 2:12 PM CST DATE OF SERVICE: 11/23/2023 DIAGNOSIS: Lung mass. Spirometry is consistent with a severe restrictive defect. Recommend lungvolume testing to confirm the presence of a restrictive impairment. Results are automatically released to your [employer] accountonce available, in compliance with federal regulations. This means thatyou may see your results before your provider has had a chance to reviewthem. Please allow 2-3 business days for your provider to comment on theresults. MD GERMANIA BOWMAN//GRANTW VJID: [id number] TJID: [id number] Godfrey Rivera MD PFT ORD * (ABNORMAL) PROTIME-INR (11/23/2023 5:53 AM UNDERGRADUATE ADVISOR) INR 1.4(H) <1.3 11/23/2023 6:29 AM UNDERGRADUATE ADVISOR [facility] PROTIME 16.0(H) 10.3 - 12.3 sec 11/23/2023 6:29 AM UNDERGRADUATE ADVISOR [facility] Blood BLOOD SPECIMEN / Unknown Butterfly / Unknown 11/23/2023 5:53 AM UNDERGRADUATE ADVISOR 11/23/2023 6:13 AM UNDERGRADUATE ADVISOR Narrative [facility] - 11/23/2023 6:29 AM UNDERGRADUATE ADVISOR ?Therapeutic Range 2.0-3.0 for most anticoagulated patients 2.5-3.5 or 4.0 for high risk patients The INR is only used for patients on stable oral anticoagulant therapy. It makes no significant contribution to the diagnosis or treatment of patients whose Protime is prolonged for other reasons. INR results are increased when heparin levels exceed 1.0 U/mL, which corresponds to an aPTT >125 seconds if the patient is on UFH. Arun Brady MD HEMATOLOGY [facility] [address] [place] [id number], * MICHAEL PREP, OTHER SOURCE (11/22/2023 6:09 PM UNDERGRADUATE ADVISOR) OBSERVATION No fungal elements seen 11/22/2023 7:28 PM UNDERGRADUATE ADVISOR [facility] Other SPUTUM SPECIMEN / Unknown Non-Blood / Unknown 11/22/2023 6:09 PM UNDERGRADUATE ADVISOR 11/22/2023 6:09 PM UNDERGRADUATE ADVISOR Jj Ribeiro MD MICROBIOLOGY [facility] [address] [place] [address], * XR CHEST 1 VIEW PA OR AP (11/22/2023 2:41 PM UNDERGRADUATE ADVISOR) Anatomical Region Laterality Modality CHEST, THORAX, Lung, HEART Digit al Radiography 11/22/2023 8:05 PM UNDERGRADUATE ADVISOR Narrative 11/22/2023 8:05 PM UNDERGRADUATE ADVISOR For Patients: ??As a result of the Cures Act, medical imaging exams and procedure reports are released immediately into your electronic medical record. ??You may view this report before your referring provider. ??If you have questions, please contact your health care provider. Indication: Postprocedure. Technique: Chest 1 view. Comparison: October 24, 2023. Findings/Impression: Cardiovascular and mediastinum: Normal heart size and mediastinum. Lungs and pleural space: New right basilar pleural effusion with adjacent atelectasis or infiltrate. Persistent left mid lung infiltrate suspicious for pneumonia. No pneumothorax. Bones and soft tissues: No acute findings. Dictated by Bryn Johnson MD @ Nov ??2023 ??8:05PM (Electronically Signed) ?? Procedure Note Bryn Johnson MD - 11/22/2023 For Patients: As a result of the Cures Act, medical imagingexams and procedure reports are released immediately into your electronicmedical record. You may view this report before your referring provider.If you have questions, please contact your health care provider. Indication: Postprocedure. Technique: Chest 1 view. Comparison: October 24, 2023. Findings/Impression: Cardiovascular and mediastinum: Normal heart size and mediastinum. Lungs and pleural space: New right basilar pleural effusion with adjacentatelectasis or infiltrate. Persistent left mid lung infiltrate suspiciousfor pneumonia. No pneumothorax. Bones and soft tissues: No acute findings. Dictated by Bryn Johnson MD @ Nov 22 2023 8:05PM (Electronically Signed) Arun Brady MD GENERAL IMAGING * US THORACENTESIS INCL IMAGE GUIDE LEFT (11/22/2023 2:33 PM UNDERGRADUATE ADVISOR) Anatomical Region Laterality Modality CHEST, THORAX Ultrasound Narrative 11/22/2023 3:47 PM UNDERGRADUATE ADVISOR RADIOLOGY POST PROCEDURE NOTE ?? 11/22/2023 Raysa Mcneil [id number] 1945 INFORMEDCONSENT: In my discussion, prior to the signing of the consent, I reviewed the procedure, benefits, risks, long-term effects, treatment options, possible use of pain or sedation medications, and how the procedure will meet the treatment goal with the patient and/or family. The patient was given ample time to ask questions. All questions were answered. ?? INDICATIONS: Left pleural effusion. PROCEDURE PERFORMED: ??Ultrasound guided left sided thoracentesis. ?? PROCEDURE NARRATIVE: ??Under ultrasound guidance, a 5-Bengali catheter was advanced into the Left ??pleural effusion and serous fluid was removed. ?? Patient tolerated the procedure well. POST-PROCEDURE DIAGNOSIS: ??Status post Ultrasound guided left sided thoracentesis. ?? PATIENT POSITION: RPO ANTISEPTIC PREPARATION and BARRIER TECHNIQUES USED: ??skin was prepped and draped in the usual sterile fashion IMAGING GUIDANCE FOR ACCESS / PROCEDURE: ??Ultrasound ??Permanently recorded images are archived in PACS. ACCESS LOCATION / SITE / TECHNIQUE: ??Left back. EQUIPMENT UTILIZED: 5 Fr merit catheter. CLOSURE: ??none RADIATION DOSE: ?? none MEDICATIONS GIVEN: ?1% Lidocaine was used for local anesthesia. SPECIMEN(S): 220 cc fluid removed. COMPLICATIONS: no complications noted DRAINS: ??None ?? ESTIMATED BLOOD LOSS: ??Less than 10 cc. PHYSICIAN(S) AND ASSISTANTS (if any): ??Tripp Barnhart MD Additional Comments: Please call with questions. Tripp Barnhart MD [place] Protocol A. Pre-procedure verification complete yes 1-relevant information / documentation available, reviewed and properly matched to the patient; 2-consent accurate and complete, 3-equipment and supplies available B. Site marking complete Yes Site marked if not in continuous attendance with patient C. TIME OUT completed yes Time Out was conducted just prior to starting procedure to verify the eight required elements: 1-patient identity, 2-consent accurate and complete, 3-position, 4-correct side/site marked (if applicable), 5-procedure, 6-relevant images / results properly labeled and displayed (if applicable), 7-antibiotics / irrigation fluids (if applicable), 8-safety precautions. Arun Brady MD * CWS PATH REVIEW BODY FLUID (11/22/2023 2:29 PM UNDERGRADUATE ADVISOR) PATH COMMENT 11/24/2023 8:22 AM UNDERGRADUATE ADVISOR [facility] Comment: Atypical cells present. See pending Cytology report. Reviewed by Dr. Nathaly Chambers on 11/23/23 Body Fluid PLEURAL FLUID SPECIMEN / Unknown Non-Blood / Unknown 11/22/2023 2:29 PM UNDERGRADUATE ADVISOR 11/22/2023 2:48 PM UNDERGRADUATE ADVISOR Arun Brady MD LABORATORY Performing Organization Address City/State/[facility] Co de Phone Number [facility] [address] [place] [address], * PATH NON LIFE CLAIMS EXAMINER CYTOLOGY (11/22/2023 2:29 PM UNDERGRADUATE ADVISOR) Case Report Medical Cytology Report ? Case: [id number] ? Authorizing Provider: ??Arun Brady MD ? Collected: ? 11/22/2023 1429 ? Ordering Location: ? [facility] ?Received: ?11/23/2023 1247 ? Hospital ? Pathologist: ? Perico Yu MD ? Specimen: ?Pleural Fluid ? 11/24/2023 4:42 PM [facility]-C ENTRAL LABORATORY Final Diagnosis A) LEFT PLEURAL FLUID CYTOLOGY: 1. Positive for adenocarcinoma consistent with pulmonary primary 2. Lung ancillary testing protocol ordered 11/24/2023 on case [id number]; see that report for results 3. See comment 11/24/2023 4:42 PM [facility] Comment Case seen in consultation with Dr. Fernandez. Refer to case [id number] for ancillary testing information. 11/24/2023 4:42 PM [facility]-C ENTRAL LABORATORY Clinical Information Ms. Mcneil is a 78 y.o. with abnormal chest imaging. A CT scan dated 11/21/2023 reports the following: IMPRESSION: 1. Persistent masslike infiltrate in the lower left lung. This could represent a neoplasm and/or pneumonia. 2. New bilateral pleural effusions with adjacent passive atelectasis in the lower lobes. 3. Lytic lesion in the T7 vertebral body highly suspicious for a metastatic lesion There is also a concurrent image guided lung needle biopsy [facility] case [id number]. 11/24/2023 4:42 PM [facility]-C ENTRAL LABORATORY Gross Description A) SOURCE: Pleural fluid, left The specimen consists of 40 cc of yellow cloudy fluid from which the following is prepared: ? -1 DiffQuik stained slide ? -1 Papanicolaou stained ThinPrep slide ? -1 H&E stained cell block slide A2 Cell block material was placed in formalin at 1315 on 11/23/23 and fixed in formalin at least 6 hours and no more than 72 hours. 11/24/2023 4:42 PM UNDERGRADUATE ADVISOR [facility] Microscopic Description Specimen adequacy: Adequate for interpretation. All slides were reviewed. The microscopic appearance substantiates the diagnosis. 11/24/2023 4:42 PM UNDERGRADUATE ADVISOR [facility] Additional Information Cytology is screened at [facility] - [address], [place] [address] and [facility] - [address], [place] [address] and [facility] - [address] [place] [address] Interpreted at [facility] - [address], [place] [address] 11/24/2023 4:42 PM UNDERGRADUATE ADVISOR [facility] Other PLEURAL FLUID SPECIMEN / Unknown Non-Blood / Unknown 11/22/2023 2:29 PM UNDERGRADUATE ADVISOR 11/23/2023 12:47 PM UNDERGRADUATE ADVISOR Comment:Left Arun Brady MD PATHOLOGY/CYTOLOGY [facility] [address] [place] [address], * BODY FLUID CELL COUNT/DIF (11/22/2023 2:29 PM UNDERGRADUATE ADVISOR) BODY FLUID SOURCE Pleural Fluid 11/24/2023 8:21 AM UNDERGRADUATE ADVISOR [facility] Comment:Left BODY FLUID COLOR Yellow 11/24/2023 8:21 AM UNDERGRADUATE ADVISOR [facility] BODY FLUID CLARITY Cloudy 11/24/2023 8:21 AM UNDERGRADUATE ADVISOR [facility] TOTAL NUCLEATED CELLS, BF 887 /cu mm 11/24/2023 8:21 AM UNDERGRADUATE ADVISOR [facility] RED BLOOD COUNT, BODY FLUID 2,000 /cu mm 11/24/2023 8:21 AM UNDERGRADUATE ADVISOR [facility] % NEUTROPHILS, BODY FLUID 36 % 11/24/2023 8:21 AM UNDERGRADUATE ADVISOR [facility] % LYMPHOCYTES, BODY FLUID 30 % 11/24/2023 8:21 AM UNDERGRADUATE ADVISOR [facility] % MONO/MACRO, BODY FLUID 11 % 11/24/2023 8:21 AM UNDERGRADUATE ADVISOR [facility] % BASOPHILS, BODY FLUID 4 % 11/24/2023 8:21 AM UNDERGRADUATE ADVISOR [facility] % MESOTHELIAL CELLS, BODY FLUID 4 % 11/24/2023 8:21 AM UNDERGRADUATE ADVISOR [facility] % OTHER CELLS 15 % 11/24/2023 8:21 AM UNDERGRADUATE ADVISOR [facility] Body Fluid PLEURAL FLUID SPECIMEN / Unknown Non-Blood / Unknown 11/22/2023 2:29 PM UNDERGRADUATE ADVISOR 11/22/2023 2:[address] [facility]ATORY - 11/24/2023 8:21 AM UNDERGRADUATE ADVISOR Differential held for Pathology review Arun Jorge Brady MD BODY FLUID [facility] [address] [place] [address], * PROTEIN,BODY FLUID (11/22/2023 2:29 PM UNDERGRADUATE ADVISOR) SPECIMEN SOURCE Left pleural 11/22/2023 4:18 PM UNDERGRADUATE ADVISOR [facility] PROTEIN,BODY FLUID 2.1 g/dL 11/22/2023 4:18 PM UNDERGRADUATE ADVISOR [facility] Comment:No Reference Range D efined. Body Fluid PLEURAL FLUID SPECIMEN / Unknown Non-Blood / Unknown 11/22/2023 2:29 PM UNDERGRADUATE ADVISOR 11/22/2023 2:[address] [facility] LAB[facility]ATORY - 11/22/2023 4:18 PM UNDERGRADUATE ADVISOR Pleural: Pleural fluid transudate total protein to serum total protein ratio typically </=0.5. Pleural fluid exudate total protein to serum total protein ratio typically >0.5. Peritoneal: Ascitic fluid total protein is a reflection of serum protein concentration. May be useful in differentiating secondary bacterial peritonitis from spontaneous bacterial peritonitis when at least two of the three criteria are met in ascetic fluid: Total Protein > 1.0 g/dL Glucose < 50 mg/dL LDH > Upper reference limit for serum Ascitic fluid total protein may be elevated > 2.5 g/dL in patients with high albumin gradient ascites caused by heart failure. Test developed & performance characteristics [facility] [place] [place] consistent with CLIA requirements. Not cleared or approved by [place] FDA. Arun Brady MD BODY FLUID Performing Organization Address City/[facility]/ZIP Co de Phone Number [facility] [address] [address], [place] * PH,BODY FLUID (11/22/2023 2:29 PM UNDERGRADUATE ADVISOR) PH,BODY FLUID 7.56 11/22/2023 4:33 PM UNDERGRADUATE ADVISOR [facility] TRAL LABORATORY Specimen Source Pleural 11/22/2023 4:33 PM UNDERGRADUATE ADVISOR [facility] TRAL LABORATORY Body Fluid PLEURAL FLUID SPECIMEN / Unknown Non-Blood / Unknown 11/22/2023 2:29 PM UNDERGRADUATE ADVISOR 11/22/2023 2:48 PM UNDERGRADUATE ADVISOR Arun Brady MD BODY FLUID Performing Organization Address [facility] Co de Phone Number [facility] [address] [place] [phone], [place] * LD,BODY FLUID (11/22/2023 2:29 PM UNDERGRADUATE ADVISOR) SPECIMEN SOURCE Left pleural 11/22/2023 4:18 PM UNDERGRADUATE ADVISOR [facility] TRAL LABORAT[facility] LD,BODY FLUID 217 IU/L 11/22/2023 4:18 PM UNDERGRADUATE ADVISOR [facility] TRAL [facility] Body Fluid PLEURAL FLUID SPECIMEN / Unknown Non-Blood / Unknown 11/22/2023 2:29 PM UNDERGRADUATE ADVISOR 11/22/2023 2:48 PM UNDERGRADUATE ADVISOR Narrative [facility] 11/22/2023 4:18 PM UNDERGRADUATE ADVISOR Pleural: ? Pleural fluid LDH to serum LDH ratio <= 0.6 or less than 2/3 the ?upper limit of normal serum LDH consistent with transudative ?effusions, while pleural fluid LDH to serum LDH ratio > 0.6 is ?consistent with exudative effusions. Peritoneal: ??Ascitic fluid LDH may be useful in differentiating secondary ?bacterial peritonitis from spontaneous bacterial peritonitis when ?at least two of the three criteria are met in ascites Fluid: ? Total protein >1.0 g/dL ? Glucose <50 mg/dL ? LDH > upper reference limit for serum Test developed & performance characteristics determined by [employer] [facility], [place], [place] consistent with CLIA requirements. Not cleared or approved by [place] FDA. Arun Brady MD BODY FLUID Performing Organization Address [facility] de Phone Number [facility] [address] [place] [address], * SCAN CORRESP-LABORATORY RESULTS (11/22/2023 9:46 AM UNDERGRADUATE ADVISOR) Narrative 11/22/2023 9:46 AM UNDERGRADUATE ADVISOR Ordered by an unspecified provider. Other Clinical Staff OTHER * Phosphorus FOR ADD ON (11/22/2023 4:50 AM UNDERGRADUATE ADVISOR) PHOSPHORUS 4.0 2.5 - 4.5 mg/dL 11/22/2023 6:17 AM UNDERGRADUATE ADVISOR [facility] [employer] [facility] Blood BLOOD SPECIMEN / Unknown Butterfly / Unknown 11/22/2023 4:50 AM UNDERGRADUATE ADVISOR 11/22/2023 5:01 AM UNDERGRADUATE ADVISOR Terrell Eubanks MD CHEMISTRY Performing Organization Address [facility] de Phone Number [facility] [address] [place] [address], * (ABNORMAL) Basic metabolic panel AM (11/22/2023 4:50 AM UNDERGRADUATE ADVISOR) Only the most recent of3 resultswithin the time period is included. SODIUM 140 136 - 145 mmol/L 11/22/2023 5:48 AM [facility] TRAL LAB[facility] POTASSIUM 4.1 3.5 - 5.1 mmol/L 11/22/2023 5:48 AM [facility] TRAL [facility] CHLORIDE 97(L) 98 - 107 mmol/L 11/22/2023 5:48 AM [facility] CO2,TOTAL 35(H) 22 - 29 mmol/L 11/22/2023 5:48 AM [facility] TRAL [facility] ANION GAP 8 5 - 18 11/22/2023 5:48 AM [facility] GLUCOSE 96 70 - 99 mg/dL 11/22/2023 5:48 AM [facility] TRAL [facility] CALCIUM 8.7(L) 8.8 - 10.2 mg/dL 11/22/2023 5:48 AM [facility] BUN 16 8 - 23 mg/dL 11/22/2023 5:48 AM [facility] TRAL LAB[facility] CREATININE 0.64 0.50 - 0.90 mg/dL 11/22/2023 5:48 AM [facility] TRA LABORAT[facility] BUN/CREAT RATIO 25(H) 10 - 20 5:48 AM [facility] TRAL LABORATORY eGFR >90 >90 mL/min/1.7 3m2 11/22/2023 5:48 AM [facility] Comment:As of 2022, eG FR is calculated by the CKD-EPI creatinine equation without race adjustment. ??eGFR can be influenced by muscle mass, exercise, and diet. ??The reported eGFR is an estimation only and is only applicable if the renal function is stable. Blood BLOOD SPECIMEN / Unknown Butterfly / Unknown 11/22/2023 4:50 AM UNDERGRADUATE ADVISOR 11/22/2023 5:01 AM UNDERGRADUATE ADVISOR Kenny Gray MD CHEMISTRY Performing Organization Address [facility] Co de Phone Number [facility] [address] [place] [address], * LACTATE SCREEN VENOUS ISTAT W MOSER (11/21/2023 9:39 PM UNDERGRADUATE ADVISOR) LACTATE VENOUS SCREEN ISTAT <1.8 <=2.0 11/21/2023 9:42 PM UNDERGRADUATE ADVISOR [facility] LACTATE SCREEN VENOUS POCT 1.6 <=2.0 11/21/2023 9:42 PM UNDERGRADUATE ADVISOR [facility] Blood BLOOD SPECIMEN / Unknown 11/21/2023 9:39 PM UNDERGRADUATE ADVISOR 11/21/2023 9:42 PM UNDERGRADUATE ADVISOR [facility] Performing Organization Address [facility] Phone Number [facility] [address] [place] [address], [place] * EXTRA TUBE MOSER ON ICE (11/21/2023 9:25 PM UNDERGRADUATE ADVISOR) Blood BLOOD SPECIMEN / Unknown Butterfly / Unknown 11/21/2023 9:25 PM UNDERGRADUATE ADVISOR 11/21/2023 9:31 PM UNDERGRADUATE ADVISOR [facility] Performing Organization Address [facility] Phone Number [facility] [address] [place] [address], [place] * (ABNORMAL) PROCALCITONIN (11/21/2023 9:25 PM UNDERGRADUATE ADVISOR) Only the most recent of3 resultswithin the time period is included. PROCALCITONIN 0.60(H) ng/ml 11/21/2023 10:18 PM UNDERGRADUATE ADVISOR [facility] TRAL LABORATORY Blood BLOOD SPECIMEN / Unknown Butterfly / Unknown 11/21/2023 9:25 PM UNDERGRADUATE ADVISOR 11/21/2023 9:31 PM UNDERGRADUATE ADVISOR Narrative [facility] - 11/21/2023 10:18 PM UNDERGRADUATE ADVISOR Procalcitonin for initial assessment of Lower Respiratory Tract Infection: Results Interpretation <0.10 ng/mL Antibiotic therapy strongly discoraged. ??Indicates absent of bacterial infection. * 0.10 - 0.25 ng/mL Antibiotic therapy discouraged. ??Bacterial infection unlikely. * 0.26 - 0.50 ng/mL Antibiotic therapy encouraged. ??Bacterial infection possible. >0.50 ng/mL Antibiotic therapy strongly encouraged. ??Suggestive of presence of bacterial infection. *Antibiotic therapy should be considered regardless of PCT result if the patient is clinically unstable, is at high risk for adverse outcome, has strong evidence of bacterial pathogen, or the clinical context indicates antibiotic therapy is warranted. ??If antibiotics are withheld, reassess if symptoms persist/worsen and/or repeat PCT measurement within 6-24 hours. ? In order to assess treatment success and to support a decision to discontinue antibiotic therapy, follow up samples should be tested once every 1-2 days, based upon physician discretion taking into account patient's evolution and progress. Procalcitonin for initial assessment of severe sepsis risk: Results Interpretation <0.5 ng/ml A PCT level below 0.5 ng/ml on the first day of ICU admission is associated with a low risk for progression to severe sepsis and/or septic shock. > 2.0 ng/mL A PCT level above 2.0 ng/mL on the first day of ICU admission is associated with a high risk for progression to severe sepsis and/or septic shock. Note: Concentrations < 0.5 ng/mL do not exclude an infection, on account of localized infections (without systemic signs) which can be associated with such low concentrations, or a systemic infection in its initial stages(< 6 hours). Furthermore, increased procalcitonin can occur without infection. PCT concentrations between 0.5 and 2.0 ng/mL should be interpreted taking into account the patient's history. It is recommended to retest PCT within 6-24 hours if any concentrations < 2 ng/mL are obtained. Leticia CUEVAS SEND OUTS [facility] [address] [place] [phone], [place] * CT CHEST PE STUDY (11/21/2023 8:37 PM UNDERGRADUATE ADVISOR) Anatomical Region Laterality Modality CHEST, THORAX, HEART Computed To mography 11/21/2023 10:1 2 PM UNDERGRADUATE ADVISOR Impressions 11/21/2023 10:12 PM UNDERGRADUATE ADVISOR 1. Persistent masslike infiltrate in the lower left lung. This could represent a neoplasm and/or pneumonia. 2. New bilateral pleural effusions with adjacent passive atelectasis in the lower lobes. 3. Lytic lesion in the T7 vertebral body highly suspicious for a metastatic lesion. Please note that all CT scans at this facility use dose modulation, iterative reconstruction, and/or weight-based dosing when appropriate to reduce radiation dose to as low as reasonably achievable. Dictated by Bryn Johnson MD @ 11/21/2023 10:12:25 PM (Electronically Signed) Narrative 11/21/2023 10:12 PM UNDERGRADUATE ADVISOR For Patients: ??As a result of the Cures Act, medical imaging exams and procedure reports are released immediately into your electronic medical record. ??You may view this report before your referring provider. ??If you have questions, please contact your health care provider. INDICATION: Left lung mass/pneumonia. Worsening shortness of breath and hypoxemia. TECHNIQUE: CT chest PE was acquired with 75 cc Omnipaque 350 IV contrast. COMPARISON: October 24, 2023. FINDINGS: Heart and vasculature: Contrast opacification of the pulmonary arterial tree is adequate. No sign of pulmonary embolism. Heart size is normal. Thoracic aorta and pulmonary artery are normal in caliber. Lungs and pleura: Persistent masslike infiltrate in the left lower lobe is unchanged in size. New small bilateral pleural effusions with adjacent passive atelectasis in the lower lobes. Severe emphysema. No pneumothorax. Lymph nodes/mediastinum: No mediastinal, hilar, or axillary adenopathy. Chest wall: No masses. Upper abdomen: No acute or significant findings. Bones: Lytic lesion is present in the T7 vertebral body. Severe compression fracture deformity of the T12 vertebral body. Procedure Note Bryn Johnson MD - 11/21/2023 For Patients: As a result of the Century Cures Act, medical imagingexams and procedure reports are released immediately into your electronicmedical record. You may view this report before your referring provider.If you have questions, please contact your health care provider. INDICATION: Left lung mass/pneumonia. Worsening shortness of breath and hypoxemia. TECHNIQUE: CT chest PE was acquired with 75 cc Omnipaque 350 IV contrast. COMPARISON: October 24, 2023. FINDINGS: Heart and vasculature: Contrast opacification of the pulmonary arterialtree is adequate. No sign of pulmonary embolism. Heart size is normal.Thoracic aorta and pulmonary artery are normal in caliber. Lungs and pleura: Persistent masslike infiltrate in the left lower lobe isunchanged in size. New small bilateral pleural effusions with adjacentpassive atelectasis in the lower lobes. Severe emphysema. No pneumothorax. Lymph nodes/mediastinum: No mediastinal, hilar, or axillary adenopathy. Chest wall: No masses. Upper abdomen: No acute or significant findings. Bones: Lytic lesion is present in the T7 vertebral body. Severecompression fracture deformity of the T12 vertebral body. IMPRESSION: 1. Persistent masslike infiltrate in the lower left lung. This couldrepresent a neoplasm and/or pneumonia. 2. New bilateral pleural effusions with adjacent passive atelectasis inthe lower lobes. 3. Lytic lesion in the T7 vertebral body highly suspicious for ametastatic lesion. Please note that all CT scans at this facility use dose modulation,iterative reconstruction, and/or weight-based dosing when appropriate toreduce radiation dose to as low as reasonably achievable. Dictated by Bryn Johnson MD @ 11/21/2023 10:12:25 PM (Electronically Signed) [facility] CT * (ABNORMAL) TROPONIN T (HS) ONE TIME (11/21/2023 8:08 PM UNDERGRADUATE ADVISOR) TROPONIN T HS 29(H) 6-10 ng/L ng/L 11/21/2023 8:48 PM UNDERGRADUATE ADVISOR [facility] Blood BLOOD SPECIMEN / Unknown Venipuncture / Unknown 11/21/2023 8:08 PM UNDERGRADUATE ADVISOR 11/21/2023 8:18 PM UNDERGRADUATE ADVISOR Leticia CUEV[facility] CHEMISTRY Performing Organization Address [facility] Co de Phone Number [facility] Phase III DevelopmentCENTRAL LABORATORY [address] [place] [phone], * EKG 12 LEAD (11/21/2023 6:14 PM UNDERGRADUATE ADVISOR) Interpretation Sinus rhythm with frequent Premature ventricular complexes Otherwise normal ECG No significant change BEYOND NOW Ventricular Rate 98 BPM BEYOND NOW Atrial Rate 98 BPM BEYOND NOW P-R Interval 116 ms BEYOND NOW QRS Duration 70 ms BEYOND NOW QT 356 ms BEYOND NOW QTc 454 ms BEYOND NOW P Kingsley 42 degrees BEYOND NOW R Kingsley 32 degrees BEYOND NOW T Kingsley 33 degrees BEYOND NOW 11/21/2023 6:14 PM UNDERGRADUATE ADVISOR 11/22/2023 7:20 AM UNDERGRADUATE ADVISOR Let[facility] EKG ORD Performing Organization Address [facility] de Phone Number BEYOND NOW [place], [place] * CWS PATH REVIEW HEMATOLOGY (11/21/2023 6:08 PM UNDERGRADUATE ADVISOR) Only the most recent of2 resultswithin the time period is included. Pathologist [facility] PATH COMMENT 11/24/2023 1:09 PM UNDERGRADUATE ADVISOR [facility] Comment: Reviewed by KM on 11/24/2023 Blood BLOOD SPECIMEN / Unknown Butterfly / Unknown 11/21/2023 6:08 PM UNDERGRADUATE ADVISOR 11/21/2023 6:25 PM UNDERGRADUATE ADVISOR [facility] Performing Organization Address [facility] Co de Phone Number [facility] [address] [place] [phone], * (ABNORMAL) TROPONIN T (HS) ACUTE W/2HR REFLEX (11/21/2023 6:08 PM UNDERGRADUATE ADVISOR) Pathologist [facility] TROPONIN T HS 31(H) 6-10 ng/L ng/L 11/21/2023 7:00 PM UNDERGRADUATE ADVISOR [facility] Blood BLOOD SPECIMEN / Unknown Butterfly / Unknown 11/21/2023 6:08 PM UNDERGRADUATE ADVISOR 11/21/2023 6:25 PM UNDERGRADUATE ADVISOR Narrative [facility]AL [facility] - 11/21/2023 7:00 PM UNDERGRADUATE ADVISOR hs-cTnT (Elecsys Troponin T Gen 5) concentration (s) above the sex-specific 99th percentile (16 ng/L or greater for males or 11 ng/L or greater for females) are indicative of myocardial injury. If initial hs-cTnT <=100 ng/L at presentation, a 0h/2h ABSOLUTE (ng/L) delta change (rising or falling) of >=10 ng/L suggests a significant change, whereas a 0h/2h delta change <=3 ng/L suggests no significant change. If initial hs-cTnT >100 ng/L at presentation, a 0h/2h/ RELATIVE (percent, %) delta change of 20% is suggested to distinguish patients with acute vs. chronic myocardial injury. There are multiple etiologies that can cause hs-cTnT increases above the 99th percentile (myocardial injury) other than acute myocardial infarction. Clinical context and careful clinical evaluation are critical for diagnosis and risk-stratification. The diagnosis of acute myocardial infarction requires a rising and/or falling pattern in hs-cTnT concentrations with at least one value above the sex-specific 99th percentile PLUS at least one of the following clinical criteria: ischemic symptoms, new or presumed new significant ST-T wave changes or new LBBB, development of pathological Q waves, imaging evidence of new loss of viable myocardium or new regional wall motion abnormality, or identification of intracoronary atherothrombosis or an acute angiographic culprit on coronary angiography. In appropriate low-risk patients with a non-ischemic electrocardiogram without active chest pain with a symptom onset >3-hours without recurrence, a single initial hs-cTnT<6 ng/L identifies patient with a very low risk in emergency department patient population. Leticia CUEVAS CHEMISTRY [facility] [address] [place] [address], * (ABNORMAL) CBC WITH AUTO DIFFERENTIAL (11/21/2023 6:08 PM UNDERGRADUATE ADVISOR) Only the most recent of3 resultswithin the time period is included. [facility] WHITE BLOOD COUNT 20.9(H) 4.5 - 11.0 thou/cu mm 11/21/2023 7:24 PM [facility] TRAL LABORAT[facility] RED BLOOD COUNT 3.03(L) 4.00 - 5.20 mil/cu mm 11/21/2023 7:24 PM [facility] TRAL [facility] HEMOGLOBIN 9.1(L) 12.0 - 16.0 g/dL 11/21/2023 7:24 PM [facility] TRAL LAB[facility] HEMATOCRIT 27.8(L) 33.0 - 51.0 % 11/21/2023 7:24 PM [facility] TRAL [facility] MCV 92 80 - 100 fL 11/21/2023 7:24 PM [facility] MCH 30.0 26.0 - 34.0 pg 11/21/2023 7:24 PM [facility] TRAL [facility] MCHC 32.7 32.0 - 36.0 g/dL 11/21/2023 7:24 PM [facility] TRAL [facility] RDW 21.7(H) 11.5 - 15.5 % 11/21/2023 7:24 PM [facility] TRAL [facility] PLATELET COUNT 553(H) 140 - 440 thou/cu mm 11/21/2023 7:24 PM [facility] TRAL [facility] MPV 10.1 6.5 - 11.0 fL 11/21/2023 7:24 PM [facility] NRBC 0.2 % 11/21/2023 7:24 PM [facility] TR[facility] ABS NRBC 0.0 thou /cu mm 11/21/2023 7:24 PM [facility] TRAL [facility] Blood BLOOD SPECIMEN / Unknown Butterfly / Unknown 11/21/2023 6:08 PM UNDERGRADUATE ADVISOR 11/21/2023 6:25 PM [facility] Leticia CUEVAS HEMATOLOGY [facility] [address] [place] [address], * (ABNORMAL) RED CELL MORPHOLOGY (11/21/2023 6:08 PM UNDERGRADUATE ADVISOR) Only the most recent of3 resultswithin the time period is included. POLYCHROMASIA Slight 11/21/2023 7:23 PM UNDERGRADUATE ADVISOR [facility] TARGET CELLS Few 11/21/2023 7:23 PM UNDERGRADUATE ADVISOR [facility] RBC COMMENT Present(A) RBC morphology appears normal, RBC morphology within normal limits for newborns. 11/21/2023 7:23 PM UNDERGRADUATE ADVISOR [facility] LARGE PLATELETS Present 7:23 PM UNDERGRADUATE ADVISOR [facility] Blood BLOOD SPECIMEN / Unknown Butterfly / Unknown 11/21/2023 6:08 PM UNDERGRADUATE ADVISOR 11/21/2023 6:25 PM UNDERGRADUATE ADVISOR Let[facility]UEV[facility] HEMATOLOGY Performing Organization Address City/[facility]/ZIP Co de Phone Number [facility] [address] [place] [address], [place] * PLATELET ESTIMATE (11/21/2023 6:08 PM UNDERGRADUATE ADVISOR) Only the most recent of3 resultswithin the time period is included. Pathologist [facility] PLATELET ESTIMATE Adequate Adequate, No estimate 11/21/2023 7:23 PM UNDERGRADUATE ADVISOR [facility] TRAL LABORAT[facility] Blood BLOOD SPECIMEN / Unknown Butterfly / Unknown 11/21/2023 6:08 PM UNDERGRADUATE ADVISOR 11/21/2023 6:25 PM UNDERGRADUATE ADVISOR Leticia CUEVAS HEMATOLOGY Performing Organization Address City/[facility]/ZIP Co de Phone Number [facility] [address] [place] [address], [place] * (ABNORMAL) MANUAL DIFFERENTIAL (11/21/2023 6:08 PM UNDERGRADUATE ADVISOR) Only the most recent of3 resultswithin the time period is included. Pathologist [facility] % NEUTROPHILS 83.0 % 11/21/2023 7:23 PM UNDERGRADUATE ADVISOR [facility] TRAL [facility] % LYMPHOCYTES 6.0 % 11/21/2023 7:23 PM [facility] % MONOCYTES 10.0 % 11/21/2023 7:23 PM [facility] % EOSINOPHILS 0.0 % 11/21/2023 7:23 PM [facility] % BASOPHILS 0.0 % 11/21/2023 7:23 PM [facility] % METAMYELOCYTES 1.0(H) <0.1 % 11/21/19 7:23 PM [facility] NEUTROPHILS ABSOLUTE 17.3(H) 1.7 - 7.0 thou/cu mm 11/21/2023 7:23 PM [facility] TR[facility] LYMPHOCYTES ABSOLUTE 1.3 0.9 - 2.9 thou/cu mm 11/21/2023 7:23 PM [facility] MONOCYTES ABSOLUTE 2.1(H) <0.9 thou/cu mm 11/21/2023 7:23 PM [facility] EOSINOPHILS ABSOLUTE 0.0 <0.5 thou/cu mm 11/21/2023 7:23 PM [facility] BASOPHILS ABSOLUTE 0.0 <0.3 thou/cu mm 11/21/2023 7:23 PM [facility] ABSOLUTE METAMYELOCYTES 0.2(H) <=0.0 thou/cu mm 11/21/2023 7:23 PM [facility] Blood BLOOD SPECIMEN / Unknown Butterfly / Unknown 11/21/2023 6:08 PM UNDERGRADUATE ADVISOR 11/21/2023 6:25 PM [facility] Leticia CUEVAS HEMATOLOGY [facility] [address] [place] [address], * (ABNORMAL) PRO-BNP (11/21/2023 6:08 PM UNDERGRADUATE ADVISOR) Only the most recent of2 resultswithin the time period is included. PRO-BNP 1,270(H) <450 pg/mL 11/21/2023 7:01 PM UNDERGRADUATE ADVISOR [facility] Blood BLOOD SPECIMEN / Unknown Butterfly / Unknown 11/21/2023 6:08 PM UNDERGRADUATE ADVISOR 11/21/2023 6:25 PM UNDERGRADUATE ADVISOR Narrative [facility] - 11/21/2023 7:01 PM UNDERGRADUATE ADVISOR The following cut-points have been suggested for the use of proBNP for the diagnostic evaluation of heart failure (HF) in patient with acute dyspnea. Patients with eGFR >= 60 Diagnosis (rule in CHF) ? <50 Years Old ?450 pg/mL 50 - 75 Years Old ?900 pg/mL >75 Years Old ? 1800 pg/mL Exclusion (rule out CHF) Age Independent ?300 pg/mL A cutoff of 1200 pg/mL for patients with an eGFR <60 yields a diagnostic sensitivity of 89% and specificity of 72% for acute congestive heart failure. ? Leticia [facility]UEVAS [facility] [address] [place] [address], * SCAN-LABORATORY REPORT (11/17/2023 12:00 AM UNDERGRADUATE ADVISOR) Scanner OTHER * (ABNORMAL) C-REACTIVE PROTEIN (2023 7:05 AM UNDERGRADUATE ADVISOR) Only the most recent of5 resultswithin the time period is included. C-REACTIVE PROTEIN 5.8(H) <0.5 mg/dL 2023 9:52 AM UNDERGRADUATE ADVISOR [facility] Blood BLOOD SPECIMEN / Unknown Venipuncture / Unknown 2023 7:05 AM UNDERGRADUATE ADVISOR 2023 8:27 AM UNDERGRADUATE ADVISOR Isaac Cook MD CHEMISTRY [facility] [address] [place] [address] * (ABNORMAL) MRSA/SA PCR (10/27/2023 3:27 PM UNDERGRADUATE ADVISOR) MRSA DNA PCR Negative Negative 10/28/2023 3:16 PM UNDERGRADUATE ADVISOR [facility]- [facility] STAPHYLOCOCCUS AUREUS PCR Positive(A) Negative 10/28/2023 3:16 PM UNDERGRADUATE ADVISOR [facility] Other SPECIMEN FROM INTERNAL NOSE / Unknown Non-Blood / Unknown 10/27/2023 3:27 PM UNDERGRADUATE ADVISOR 10/27/2023 3:33 PM UNDERGRADUATE ADVISOR Narrative [facility] - 10/28/2023 3:16 PM UNDERGRADUATE ADVISOR S. aureus detected; NOT MRSA. Test result does not preclude MRSA nasal colonization. False negative for MRSA could be obtained if MRSA present in the sample is below threshold of detection. Catrachita Brady NP MICROBIOLOGY [facility] [address] [place] [address] * COCCIDIOIDES ANTIBODY IGG & IGM (10/27/2023 1:23 PM UNDERGRADUATE ADVISOR) Coccidioides Ab, IgM by Luis 0.1 <=0.9 IV 10/31/2023 1:06 AM UNDERGRADUATE ADVISOR [facility] ([facility]) Comment: INTERPRETIVE INFORMATION: Coccidioides Antibody, IgM: ??0.9 IV or less: ? Negative - No significant level of ?Coccidioides IgM antibody detected. ??1.0 - 1.4 IV: ? Equivocal - Questionable presence of ?Coccidioides IgM antibody detected. ?Repeat testing in 10-14 days may be ?helpful. ??1.5 IV or greater: ??Positive - Presence of IgM antibody ?to Coccidioides detected, suggestive ?of current or recent infection. In most symptomatic patients, IgM antibody usually appears by the second week of infection and disappears by the fourth month. Both tube precipitin (TP) and CF antigens are represented in the LUIS tests. Coccidioides Ab, IgG by LUIS 0.8 <=0.9 IV 10/31/2023 1:06 AM [facility] ([facility]) Comment: INTERPRETIVE INFORMATION: Coccidioides Antibody, IgG: ??0.9 IV or less: ? Negative - No significant level of ?Coccidioides IgG antibody detected. ??1.0 - 1.4 IV: ? Equivocal - Questionable presence of ?Coccidioides IgG antibody detected. ?Repeat testing in 10-14 days may be ?helpful. ??1.5 IV or greater: ??Positive - Presence of IgG antibody ?to Coccidioides detected, suggestive ?of current or past infection. IgG antibody usually appears by the third week of infection and may persist for years. Both tube precipitin (TP) and CF antigens are represented in the LUIS tests. Effective August [id number] Coccidioides Ab, IgG by LUIS will be made non-orderable. [facility] offers order code [id number] Coccidioides Abs, IgG/IgM, EIA. For further information, please contact your local [facility] Bridge Instructor. Blood BLOOD SPECIMEN / Unknown Venipuncture / Unknown 10/27/2023 1:23 PM UNDERGRADUATE ADVISOR 10/27/2023 1:25 PM UNDERGRADUATE ADVISOR Narrative [facility] ([facility]) - 10/31/2023 1:06 AM UNDERGRADUATE ADVISOR Performed at: ??01 - [place] [address] ??[id number] Heating Equipment Repairer: Carlito MARTINEZ, Phone: ??[phone] Catrachita Brady NP SEND OUTS Performing Organization Address [facility] de Phone Number [facility] ([facility]) [address] [place] [address] * BLASTOMYCES ABS QN DID (10/27/2023 1:23 PM UNDERGRADUATE ADVISOR) Pathologist [facility] Blastomyces Abs Qn DID Negative Neg:<1:1 2023 4:07 PM UNDERGRADUATE ADVISOR [facility] ([facility]) Blood BLOOD SPECIMEN / Unknown Venipuncture / Unknown 10/27/2023 1:23 PM UNDERGRADUATE ADVISOR 10/27/2023 1:25 PM UNDERGRADUATE ADVISOR Narrative [facility] ([facility]) - 2023 4:07 PM UNDERGRADUATE ADVISOR Performed at: ??01 - [address] ??[id number] Heating Equipment Repairer: Rakel Hearn MD, Phone: ??[phone] Catrachita Brady NP SEND OUTS Performing Organization Address [facility] Co de Phone Number [facility] ([facility]) [address] [place] [address], [place] * (ABNORMAL) WHITE BLOOD COUNT (10/27/2023 6:06 AM UNDERGRADUATE ADVISOR) Only the most recent of3 resultswithin the time period is included. Pathologist [facility] WHITE BLOOD COUNT 20.6(H) 4.5 - 11.0 thou/cu mm 10/27/2023 7:22 AM UNDERGRADUATE ADVISOR [facility] Blood BLOOD SPECIMEN / Unknown Venipuncture / Unknown 10/27/2023 6:06 AM UNDERGRADUATE ADVISOR 10/27/2023 7:07 AM UNDERGRADUATE ADVISOR Paco Holly DO HEMATOLOGY Performing Organization Address City/[facility]/ZIP Co de Phone Number [facility] [address] [place] [address] * (ABNORMAL) CREATININE (10/27/2023 6:06 AM UNDERGRADUATE ADVISOR) Only the most recent of3 resultswithin the time period is included. [facility] eGFR 48(L) >90 mL/min/1.7 3m2 10/27/2023 8:45 AM UNDERGRADUATE ADVISOR [facility] Comment:As of 2022, eG FR is calculated by the CKD-EPI creatinine equation without race adjustment. ??eGFR can be influenced by muscle mass, exercise, and diet. ??The reported eGFR is an estimation only and is only applicable if the renal function is stable. CREATININE 1.19(H) 0.50 - 0.90 mg/dL 10/27/2023 8:45 AM UNDERGRADUATE ADVISOR [facility] Blood BLOOD SPECIMEN / Unknown Venipuncture / Unknown 10/27/2023 6:06 AM UNDERGRADUATE ADVISOR 10/27/2023 7:07 AM UNDERGRADUATE ADVISOR Paco Holly DO CHEMISTRY [facility] [address] [place] [address] * BUN (10/26/2023 5:48 AM UNDERGRADUATE ADVISOR) Only the most recent of2 resultswithin the time period is included. BUN 14 8 - 23 mg/dL 10/26/2023 7:53 AM UNDERGRADUATE ADVISOR [facility] Blood BLOOD SPECIMEN / Unknown Venipuncture / Unknown 10/26/2023 5:48 AM UNDERGRADUATE ADVISOR 10/26/2023 6:44 AM UNDERGRADUATE ADVISOR Catrachita Brysonen PRECISION OPTICS TECHNICIAN CHEMISTRY Performing Organization Address [facility] Co de Phone Number [facility] [address] [place] [address] * SODIUM (10/26/2023 5:48 AM UNDERGRADUATE ADVISOR) Only the most recent of2 resultswithin the time period is included. SODIUM 139 136 - 145 mmol/L 10/26/2023 7:53 AM UNDERGRADUATE ADVISOR [facility] Blood BLOOD SPECIMEN / Unknown Venipuncture / Unknown 10/26/2023 5:48 AM UNDERGRADUATE ADVISOR 10/26/2023 6:44 AM UNDERGRADUATE ADVISOR Catrachita Brysonen PRECISION OPTICS TECHNICIAN CHEMISTRY Performing Organization Address [facility] de Phone Number [facility] [address] [place] [address] * (ABNORMAL) CHLORIDE (10/26/2023 5:48 AM UNDERGRADUATE ADVISOR) CHLORIDE 108(H) 98 - 107 mmol/L 10/26/2023 7:53 AM UNDERGRADUATE ADVISOR [facility] Blood BLOOD SPECIMEN / Unknown Venipuncture / Unknown 10/26/2023 5:48 AM UNDERGRADUATE ADVISOR 10/26/2023 6:44 AM UNDERGRADUATE ADVISOR Catrachita Brysonen L Brady PRECISION OPTICS TECHNICIAN CHEMISTRY Performing Organization Address [facility] de Phone Number [facility] [address] [place] [address] * (ABNORMAL) CO2,TOTAL (10/26/2023 5:48 AM UNDERGRADUATE ADVISOR) Only the most recent of2 resultswithin the time period is included. CO2,TOTAL 21(L) 22 - 29 mmol/L 10/26/2023 7:53 AM UNDERGRADUATE ADVISOR [facility] Blood BLOOD SPECIMEN / Unknown Venipuncture / Unknown 10/26/2023 5:48 AM UNDERGRADUATE ADVISOR 10/26/2023 6:44 AM UNDERGRADUATE ADVISOR Catrachita Brady PRECISION OPTICS TECHNICIAN CHEMISTRY Performing Organization Address [facility] Co de Phone Number [facility] [address] [place] [address] * (ABNORMAL) GLUCOSE METER (10/25/2023 11:46 AM UNDERGRADUATE ADVISOR) Only the most recent of4 resultswithin the time period is included. GLUCOSE METER 113(H) 65 - 100 mg/dL 10/25/2023 5:06 PM UNDERGRADUATE ADVISOR [facility] Blood BLOOD SPECIMEN / Unknown 10/25/2023 11:46 AM UNDERGRADUATE ADVISOR 10/25/2023 5:06 PM UNDERGRADUATE ADVISOR Paco Dean Holly DO CHEMISTRY Performing Organization Address [facility] de Phone Number [facility] [address] [place] [address] * (ABNORMAL) HEMOGLOBIN (10/25/2023 5:53 AM UNDERGRADUATE ADVISOR) HEMOGLOBIN 10.6(L) 12.0 - 16.0 g/dL 10/25/2023 6:45 AM UNDERGRADUATE ADVISOR [facility] MCV 87 80 - 100 fL 10/25/2023 6:45 AM UNDERGRADUATE ADVISOR [facility] Blood BLOOD SPECIMEN / Unknown Venipuncture / Unknown 10/25/2023 5:53 AM UNDERGRADUATE ADVISOR 10/25/2023 6:38 AM UNDERGRADUATE ADVISOR Catrachita Brady PRECISION OPTICS TECHNICIAN HEMATOLOGY Performing Organization Address [facility] Co de Phone Number [facility] [address] [place] [address] * CALCIUM (10/25/2023 5:53 AM UNDERGRADUATE ADVISOR) CALCIUM 8.8 8.8 - 10.2 mg/dL 10/25/2023 7:09 AM UNDERGRADUATE ADVISOR [facility] Blood BLOOD SPECIMEN / Unknown Venipuncture / Unknown 10/25/2023 5:53 AM UNDERGRADUATE ADVISOR 10/25/2023 6:37 AM UNDERGRADUATE ADVISOR Catrachita Brady NP CHEMISTRY [facility] [address] [place] [address] * LEGIONELLA AND PNEUMOCOCCAL URINE ANTIGEN (10/24/2023 3:47 PM UNDERGRADUATE ADVISOR) STREP PNEUMO ANTIGEN Negative 10/25/2023 3:02 PM UNDERGRADUATE ADVISOR [facility] Comment:Presumptive negative for pneumococcal pneumonia, suggesting no current or recent pneumococcal infection. Infection due to S. pneumoniae cannot be ruled out since the antigen present in the sample may be below the detection limit of the test. LEGIONELLA ANTIGEN Negative 10/25/2023 3:02 PM UNDERGRADUATE ADVISOR [facility] Comment:Negative for L.pneum ophila serogroup 1 antigen, suggesting no recent or current infection. Infection due to Legionella cannot be ruled out since other serogroups and species may cause disease, antigen may not be present in urine in early infection, and the level of antigen present may be below the detection limit of the test. Low test sensitivity in patients with mild pneumonia. Urine URINE SPECIMEN / Unknown Non-Blood / Unknown 10/24/2023 3:47 PM UNDERGRADUATE ADVISOR 10/24/2023 5:06 PM UNDERGRADUATE ADVISOR Catrachita Brady NP MICROBIOLOGY Performing Organization Address City/[facility]/ZIP Co de Phone Number [facility] [address] [place] [address], * (ABNORMAL) URINALYSIS MICROSCOPIC (10/24/2023 3:47 PM UNDERGRADUATE ADVISOR) RBC 0-2 0-2, None Seen /HPF 10/24/2023 4:03 PM [facility] WBC 6-10(A) 0-2, 3-5, None Seen /HPF 10/24/2023 4:03 PM [facility] BACTERIA Moderate(A ) None Seen, Rare, Few Bacteria/ HPF 10/24/2023 4:03 PM [facility] EPITHELIAL CELLS Few None Seen, Few Epi/HPF 10/24/2023 4:03 PM [facility] GRANULAR CASTS 6-10(A) (none) /LPF 10/24/2023 4:03 PM [facility] Urine URINE SPECIMEN / Unknown Non-Blood / Unknown 10/24/2023 3:47 PM UNDERGRADUATE ADVISOR 10/24/2023 3:51 PM UNDERGRADUATE ADVISOR Elvia Finley PRECISION OPTICS TECHNICIAN URINE [facility] [address] [place] [id number] * (ABNORMAL) UA W/ SEDIMENT EXAM REFLEXED PER CRITERIA (10/24/2023 3:47 PM UNDERGRADUATE ADVISOR) COLOR Yellow Yellow Color 10/24/2023 3:59 PM [facility] CLARITY Clear Clear Clarity 10/24/2023 3:59 PM [facility] SPECIFIC GRAVITY,URINE 1.015 1.010, 1.015, 1.020, 1.025 10/24/2023 3:59 PM [facility] PH,URINE 5.5 6.0, 7.0, 8.0, 5.5, 6.5, 7.5, 8.5 10/24/2023 3:59 PM [facility] UROBILINOGEN,QU ALITATIVE Normal Normal EU/dl 10/24/2023 3:59 PM [facility] PROTEIN, URINE 100(A) Negative mg/dL 10/24/2023 3:59 PM [facility] GLUCOSE, URINE Negative Negative mg/dL 10/24/2023 3:59 PM [facility] KETONES,URINE Negative Negative mg/dL 10/24/2023 3:59 PM UNDERGRADUATE ADVISOR [facility] BILIRUBIN,URINE Abnormal(A) Negative 10/24/20 3:59 PM UNDERGRADUATE ADVISOR [facility] Comment:A variety of metabol ites and/or medications may result in a positive bilirubin result. Clinical correlation is recommended. OCCULT BLOOD,URINE Small(A) Negative 10/24/2023 3:59 PM UNDERGRADUATE ADVISOR [facility] NITRITE Negative Negative 10/24/2023 3:59 PM UNDERGRADUATE ADVISOR [facility] LEUKOCYTE ESTERASE Negative Negative 10/24/2023 3:59 PM UNDERGRADUATE ADVISOR [facility] Urine URINE SPECIMEN / Unknown Non-Blood / Unknown 10/24/2023 3:47 PM UNDERGRADUATE ADVISOR 10/24/2023 3:51 PM UNDERGRADUATE ADVISOR Elvia Finley PRECISION OPTICS TECHNICIAN URINE [facility] [address] [place] [address] * CT CHEST W (10/24/2023 1:09 PM UNDERGRADUATE ADVISOR) Anatomical Region Laterality Modality CHEST, THORAX, HEART Computed To mography 10/24/2023 2:11 PM UNDERGRADUATE ADVISOR Impressions 10/24/2023 2:11 PM UNDERGRADUATE ADVISOR 1. Left multilobar masslike opacity notable for regional internal low density suspicious for a developing abscess in the setting of pneumonia. Generally speaking, differential diagnostic considerations include lung cancer. If the patient is acutely ill then pneumonia is favored. Short interval follow-up chest CT is recommended in 6 weeks following empiric antibiotic therapy. 2. 9 mm right upper lobe ground-glass nodular opacity for which a follow-up chest CT is recommended in 6 months according to Fleischner criteria. 3. Incidental findings described above. Recommendation: 6 week follow up chest CT. Please note that all CT scans at this facility use dose modulation, iterative reconstruction, and/or weight-based dosing when appropriate to reduce radiation dose to as low as reasonably achievable. Dictated by Franki Larson MD @ 10/24/2023 2:11:06 PM (Electronically Signed) Narrative 10/24/2023 2:11 PM UNDERGRADUATE ADVISOR For Patients: ??As a result of the Cures Act, medical imaging exams and procedure reports are released immediately into your electronic medical record. ??You may view this report before your referring provider. ??If you have questions, please contact your health care provider. INDICATION: Pneumonia, not otherwise described on the order. TECHNIQUE: CT chest was acquired with 100 cc Omnipaque 300 IV contrast. COMPARISON: Today`s chest radiograph performed at 1158 hours. FINDINGS: Lungs and pleura: Coalescent opacity in the apical posterior segment of the left upper lobe and superior segment of the left lower lobe, wider than tall on the coronal series, with relatively sparse peripheral reticulations, without pronounced microlobulated margins extending from the left pulmonary hilum to the costal pleural surface of the left lung otherwise notable for regional low-attenuation on visual inspection (see series 2; image 48). The latter feature may indicate a developing pulmonary abscess. If the patient is acutely ill then the finding is most likely due to consolidation indicating pneumonia. Lung cancer is included in the differential, generally speaking. Short interval follow-up CT is recommended after empiric antibiotic treatment in 6 weeks. ?? Associated bandlike pleural-based anteromedial segment left lower lobe hepatic consistent with atelectasis. Posterior segment left lower lobe subsegmental bronchial wall thickening consistent with nonspecific small airways disease. 9 mm (mean diameter) anterior segment right upper lobe ground-glass nodular opacity (3; 47). Moderate upper lobe predominant symmetrical emphysema. Scattered right upper lobe micro nodules. Smoothly contoured sharply marginated nodular thickening of the right major and minor fissures consistent with intrapulmonary lymph nodes/lymphoid aggregates. Heart and vasculature: Severe multivessel atherosclerotic coronary calcifications.Moderate to severe thoracic aortic and branch vessel atherosclerotic mural calcification. No aneurysm. Lymph nodes/mediastinum: No mediastinal, hilar, or axillary adenopathy. Chest wall: No masses. Upper abdomen: Severe abdominal aortic and branch vessel atherosclerotic mural calcification. It right parapelvic and renal cortical cysts without suspicious or complicated features. Diverticulosis of the splenic flexure of the colon. Bones: Chronic appearing severe pincer type compression deformity of the T11 vertebral body. Procedure Note Franki Larson MD - 10/24/2023 For Patients: As a result of the 21st Century Cures Act, medical imagingexams and procedure reports are released immediately into your electronicmedical record. You may view this report before your referring provider.If you have questions, please contact your health care provider. INDICATION: Pneumonia, not otherwise described on the order. TECHNIQUE: CT chest was acquired with 100 cc Omnipaque 300 IV contrast. COMPARISON: Today`s chest radiograph performed at 1158 hours. FINDINGS: Lungs and pleura: Coalescent opacity in the apical posterior segment ofthe left upper lobe and superior segment of the left lower lobe, widerthan tall on the coronal series, with relatively sparse peripheralreticulations, without pronounced microlobulated margins extending fromthe left pulmonary hilum to the costal pleural surface of the left lungotherwise notable for regional low-attenuation on visual inspection (seeseries 2; image 48). The latter feature may indicate a developingpulmonary abscess. If the patient is acutely ill then the finding is mostlikely due to consolidation indicating pneumonia. Lung cancer is includedin the differential, generally speaking. Short interval follow-up CT isrecommended after empiric antibiotic treatment in 6 weeks. Associated bandlike pleural-based anteromedial segment left lower lobehepatic consistent with atelectasis. Posterior segment left lower lobesubsegmental bronchial wall thickening consistent with nonspecific smallairways disease. 9 mm (mean diameter) anterior segment right upper lobe ground-glassnodular opacity (3; 47). Moderate upper lobe predominant symmetrical emphysema. Scattered rightupper lobe micro nodules. Smoothly contoured sharply marginated nodularthickening of the right major and minor fissures consistent withintrapulmonary lymph nodes/lymphoid aggregates. Heart and vasculature: Severe multivessel atherosclerotic coronarycalcifications.Moderate to severe thoracic aortic and branch vesselatherosclerotic mural calcification. No aneurysm. Lymph nodes/mediastinum: No mediastinal, hilar, or axillary adenopathy. Chest wall: No masses. Upper abdomen: Severe abdominal aortic and branch vessel atheroscleroticmural calcification. It right parapelvic and renal cortical cysts withoutsuspicious or complicated features. Diverticulosis of the splenic flexureof the colon. Bones: Chronic appearing severe pincer type compression deformity of theT11 vertebral body. IMPRESSION: 1. Left multilobar masslike opacity notable for regional internal lowdensity suspicious for a developing abscess in the setting of pneumonia.Generally speaking, differential diagnostic considerations include lungcancer. If the patient is acutely ill then pneumonia is favored. Shortinterval follow-up chest CT is recommended in 6 weeks following empiricantibiotic therapy. 2. 9 mm right upper lobe ground-glass nodular opacity for which afollow-up chest CT is recommended in 6 months according to Izzy. 3. Incidental findings described above. Recommendation: 6 week follow up chest CT. Please note that all CT scans at this facility use dose modulation,iterative reconstruction, and/or weight-based dosing when appropriate toreduce radiation dose to as low as reasonably achievable. Dictated by Franki Larson MD @ 10/24/2023 2:11:06 PM (Electronically Signed) Elvia Finley PRECISION OPTICS TECHNICIAN CT * LACTATE VENOUS (10/24/2023 11:57 AM UNDERGRADUATE ADVISOR) [facility] LACTATE,VENOUS 2.0 0.5 - 2.0 mmol/L 10/24/2023 12:24 PM UNDERGRADUATE ADVISOR [facility] Blood BLOOD SPECIMEN / Unknown Butterfly / Unknown 10/24/2023 11:57 AM UNDERGRADUATE ADVISOR 10/24/2023 12:02 PM UNDERGRADUATE ADVISOR Elvia Finley NP CHEMISTRY Performing Organization Address City/[facility]/ZIP Co de Phone Number [facility] [address] [place] [address] * BLOOD CULTURE (10/24/2023 11:57 AM UNDERGRADUATE ADVISOR) Only the most recent of2 resultswithin the time period is included. [facility] CULTURE No Growth. 10/29/2023 1:03 PM UNDERGRADUATE ADVISOR [facility] Blood BLOOD SPECIMEN / Unknown Butterfly / Unknown 10/24/2023 11:57 AM UNDERGRADUATE ADVISOR 10/24/2023 12:02 PM UNDERGRADUATE ADVISOR Elvia Finley PRECISION OPTICS TECHNICIAN MICROBIOLOG Y [facility] [address] [place], [place] [id number] * (ABNORMAL) COMP METABOLIC PANEL (10/24/2023 11:57 AM UNDERGRADUATE ADVISOR) SODIUM 137 136 - 145 mmol/L 10/24/2023 12:23 PM [facility] POTASSIUM 4.6 3.5 - 5.1 mmol/L 10/24/2023 12:23 PM [facility] CHLORIDE 101 98 - 107 mmol/L 10/24/2023 12:23 PM [facility] CO2,TOTAL 21(L) 22 - 29 mmol/L 10/24/2023 12:23 PM [facility] ANION GAP 15 5 - 18 10/24/2023 12:23 PM [facility] GLUCOSE 109(H) 70 - 99 mg/dL 10/24/2023 12:23 PM [facility] CALCIUM 10.4(H) 8.8 - 10.2 mg/dL 10/24/2023 12:23 PM [facility] BUN 32(H) 8 - 23 mg/dL 10/24/2023 12:23 PM [facility] CREATININE 1.06(H) 0.50 - 0.90 mg/dL 10/24/2023 12:23 PM [facility] BUN/CREAT RATIO 30(H) 10 - 20 12:23 PM [facility] eGFR 55(L) >90 mL/min/1.7 3m2 10/24/2023 12:23 PM [facility] Comment:As of 2022, eG FR is calculated by the CKD-EPI creatinine equation without race adjustment. ??eGFR can be influenced by muscle mass, exercise, and diet. ??The reported eGFR is an estimation only and is only applicable if the renal function is stable. ALBUMIN 3.1(L) 4.0 - 4.9 g/dL 10/24/2023 12:23 PM [facility] PROTEIN,TOTAL 7.0 6.0 - 8.0 g/dL 10/24/2023 12:23 PM [facility] BILIRUBIN,TOTAL 0.3 0.0 - 1.2 mg/dL 10/24/2023 12:23 PM [facility] ALK PHOSPHATASE 114(H) 35 - 104 IU/L 10/24/2023 12:23 PM UNDERGRADUATE ADVISOR [facility] ALT (SGPT) 8(L) 10 - 35 IU/L 10/24/2023 12:23 PM UNDERGRADUATE ADVISOR [facility] AST (SGOT) 17 10 - 35 IU/L 10/24/2023 12:23 PM UNDERGRADUATE ADVISOR [facility] Blood BLOOD SPECIMEN / Unknown Butterfly / Unknown 10/24/2023 11:57 AM UNDERGRADUATE ADVISOR 10/24/2023 12:02 PM UNDERGRADUATE ADVISOR Elvia Finley PRECISION OPTICS TECHNICIAN CHEMISTRY [facility] [address] [place] [address] * XR SPINE THORACOLUMBAR JUNCTION MINIMUM OF 2 VIEWS (09/16/2023 3:10 PM CDT) Anatomical Region Laterality Modality Spine, THORACIC SPINE Computed R adiography 09/16/2023 3:12 PM CDT Impressions 09/16/2023 3:12 PM CDT Fracture deformities of T11 and L3. Dictated by Elías Park MD @ Nov ??3 2022 ??3:12PM (Electronically Signed) ?? Narrative 09/16/2023 3:12 PM CDT For Patients: ??As a result of the Cures Act, medical imaging exams and procedure reports are released immediately into your electronic medical record. ??You may view this report before your referring provider. ??If you have questions, please contact your health care provider. INDICATION: Pain TECHNIQUE: Two views thoracolumbar spine COMPARISON: none FINDINGS: Mild compression deformity of the L3 superior endplate. Moderate compression deformity T11. Slight anterolisthesis L3 on L4. Dense calcifications in the aorta. Procedure Note Elías Park MD - 09/16/2023 For Patients: As a result of the Cures Act, medical imagingexams and procedure reports are released immediately into your electronicmedical record. You may view this report before your referring provider.If you have questions, please contact your health care provider. INDICATION: Pain TECHNIQUE: Two views thoracolumbar spine COMPARISON: none FINDINGS: Mild compression deformity of the L3 superior endplate. Moderatecompression deformity T11. Slight anterolisthesis L3 on L4. Densecalcifications in the aorta. IMPRESSION: Fracture deformities of T11 and L3. 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 POLST 10/28/2023 Latest Code Status on File Code Status Date Activated Date Inactivated Comments DNR 11/21/2023 10:55 PM Question Answer Comments Code Status Discussion: Reviewed Preferences Code Status History Code Status Date Activated Date Inactivated Comments DNR 10/24/2023 4:13 PM 10/28/2023 12:43 PM Question Answer Comments Code Status Discussion: Reviewed Preferences Full Code 10/24/2023 3:48 PM 10/24/2023 4:13 PM Question Answer Comments Code Status Discussion: Unable to Assess Preferences, Provider to review later Care Teams Correctional Sergeant Relationship Specialty Start Date End Date Debbie Camarillo MD [address] [place] [address] PCP - General Family Practice 06/10/22
== END 2023-11-21 15:53 | disposition home or self-care (01) ==
LOC: AMB 11-25 10:30
PROVIDERS: PCP Family Medicine; Visit Provider Family Medicine
DX: R06.09 Other forms of dyspnea (principal); F41.9 Anxiety disorder, unspecified
CPT/HCPCS: A0425; A0429